=== PATIENT | male | born 1970 | race African-American/Black ===

== ENCOUNTER 2017-02-26 17:20 | Emergency (ER) | payer BC, OTHER ==
[2017-02-26] MEDS ORDERED: Sodium Chloride 0.9% 2.5 ML Syringe FLUSH PRN (17:34)
[2017-02-26] MEDS ORDERED: Sodium Chloride 0.9% 10 ML Syringe FLUSH PRN (17:34)
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
[2017-02-26] MEDS ORDERED: Iopamidol 755 Mg/ML 100 ML Bottle IVPUSH STA (18:00)
[2017-02-26 19:48] VITALS: BP 151/92
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
== END 2017-02-26 19:46 | disposition home or self-care (01) ==
LOC: MW.ED 17:20
DX: S32.049A Unspecified fracture of fourth lumbar vertebra, initial encounter for closed fracture (principal); M48.061 Spinal stenosis, lumbar region without neurogenic claudication; S61.412A Laceration without foreign body of left hand, initial encounter; S00.01XA Abrasion of scalp, initial encounter; V59.9XXA Occupant (driver) (passenger) of pick-up truck or van injured in unspecified traffic accident, initial encounter
CPT/HCPCS: 36415; 72131-26; 74177; 74177-26; 80053; 85025; 99283; 99284-25

== ENCOUNTER 2017-05-01 14:50 | Emergency (ER) | payer BC ==
--- NOTE | 2017-05-01 15:08 | EDM.PDOC ---
ED HPI GENERAL MEDICAL PROBLEM - General Chief Complaint: Neurological Problem Stated Complaint: AMB Time Seen by Provider: 05/01/17 15:01 Source of Information: Reports: Patient History Limitations: Reports: No Limitations - History of Present Illness INITIAL COMMENTS - FREE TEXT/NARRATIVE: History of present illness: []Patient is noncompliant with his Keppra and had a seizure today. He came in by ambulance and has been awake and alert and has no complaints on arrival Review of systems: As per history of present illness and below otherwise all systems reviewed and negative. Past medical history: As per history of present illness and as reviewed below otherwise noncontributory. Surgical history: As per history of present illness and as reviewed below otherwise noncontributory. Social history: No reported history of drug or alcohol abuse. Family history: As per history of present illness and as reviewed below otherwise noncontributory. Physical exam: General: Well developed, well nourished in NAD HEENT: Atraumatic, normocephalic, pupils reactive, negative for conjunctival pallor or scleral icterus, mucous membranes moist, throat clear, neck supple, nontender, trachea midline. Lungs: Clear to auscultation, breath sounds equal bilaterally, chest nontender. Heart: S1S2, regular, negative for clicks, rubs, or JVD. Abdomen: Soft, nondistended, nontender. Negative for masses or hepatosplenomegaly. Negative for costovertebral tenderness. Pelvis: Stable nontender. Genitourinary: Deferred. Rectal: Deferred. Extremities: Atraumatic, negative for cords or calf pain. Neurovascular unremarkable. Neuro: Awake, alert, oriented. Cranial nerves II through XII unremarkable. Cerebellum unremarkable. Motor and sensory unremarkable throughout. Exam nonfocal. Diagnostics: []Bedside glucose=94 Therapeutics: [] Impression: []Uncontrolled seizures secondary to noncompliance meds Plan: []Take Keppra as directed follow-up with primary care Definitive disposition and diagnosis as appropriate pending reevaluation and review of above. - Related Data Allergies Allergy/AdvReac Type Severity Reaction Status Date / Time No Known Allergies Allergy Verified 05/01/17 14:59 Home Meds: Home Meds amLODIPine Besylate [Amlodipine Besylate] 5 mg PO DAILY 05/01/17 [History] levETIRAcetam [Keppra] 750 mg PO BID 05/01/17 [History] Past Medical History - Past Health History Medical/Surgical History: Denies Medical/Surgical History Cardiovascular History: Reports: Hypertension Neurological History: Reports: Seizure, Other (See Below) Other Neuro History: Meningioma Social & Family History - Family History Family Medical History: Noncontributory - Tobacco Use Smoking Status *Q: Never Smoker Second Hand Smoke Exposure: No - Alcohol Use Days Per Week of Alcohol Use: 4 Number of Drinks Per Day: 6 Total Drinks Per Week: 24 - Recreational Drug Use Recreational Drug Use: No ED ROS GENERAL - Review of Systems Review Of Systems: See Below (See history of present illness) ED EXAM, NEURO - Physical Exam Exam: See Below (See history of present illness) Course - Vital Signs Last Recorded V/S: Last Vital Signs Temp 98.4 F 05/01/17 14:55 Pulse 93 05/01/17 14:55 Resp 18 05/01/17 14:55 BP 175/103 H 05/01/17 14:55 Pulse Ox 97 05/01/17 14:55 Departure - Departure Time of Disposition: 15:07 Disposition: Home, Self-Care 01 Condition: Good Clinical Impression: Uncontrolled seizures Qualifiers: Convulsion type: unspecified Qualified Code(s): R56.9 - Unspecified convulsions - Discharge Information Referrals: PCP,None [Primary Care Provider] - Additional Instructions: The following information is given to patients seen in the emergency department who are being discharged to home. This information is to outline your options for follow-up care. We provide all patients seen in our emergency department with a follow-up referral. The need for follow-up, as well as the timing and circumstances, are variable depending upon the specifics of your emergency department visit. If you don't have a primary care physician on staff, we will provide you with a referral. We always advise you to contact your personal physician following an emergency department visit to inform them of the circumstance of the visit and for follow-up with them and/or the need for any referrals to a consulting specialist. The emergency department will also refer you to a specialist when appropriate. This referral assures that you have the opportunity for follow-up care with a specialist. All of these measure are taken in an effort to provide you with optimal care, which includes your follow-up. Under all circumstances we always encourage you to contact your private physician who remains a resource for coordinating your care. When calling for follow-up care, please make the office aware that this follow-up is from your recent emergency room visit. If for any reason you are refused follow-up, please contact the [facility] at and asked to speak to the emergency department charge nurse. Take Keradhara as directed do not miss any doses [facility] [address] [place] [id number]
[2017-05-01 16:09] VITALS: BP 190/115
== END 2017-05-01 15:12 | disposition home or self-care (01) ==
LOC: MW.ED 14:50
DX: R56.9 Unspecified convulsions (principal); I10 Essential (primary) hypertension; Z91.14 Patient's other noncompliance with medication regimen; Z79.899 Other long term (current) drug therapy
CPT/HCPCS: 82962; 99282; 99284

== ENCOUNTER 2017-08-10 14:30 | Emergency (ER) | payer BC ==
--- NOTE | 2017-08-10 14:51 | EDM.PDOC ---
ED HPI GENERAL MEDICAL PROBLEM - General Chief Complaint: Neuro Symptoms/Deficits Stated Complaint: PT HAD A SEIZURE Time Seen by Provider: 08/10/17 14:40 - History of Present Illness INITIAL COMMENTS - FREE TEXT/NARRATIVE: HISTORY AND PHYSICAL: History of present illness: The patient is a 47-year-old male with a known history of seizure disorder and takes Keppra as well as follows with Dr. Triana at [facility] and presents after having a seizure while at work on the oil [employer] today. According to the patient he had a meningioma removed in 2009 and actually did not have any seizures as a result of that surgery. He developed seizures at some point afterwards and when he is working with his stressful job he seems to be more susceptible to the seizures. The patient tells me that he was working today and he did feel that he was going to have a seizure, which usually includes that things get hazy, so he moved into a safer area and then proceeded to go to his knees and then oh to the ground and had a typical seizure for him biting his tongue. He did not lose bowel or bladder incontinence and he currently has no systemic complaints and no complaints of any trauma or pain as a result of the seizure. The patient says he has been on Keppra for 2-1/2 years and has been following at [facility] for his blood pressure as well as the seizures. The patient was seen here mid April after having a seizure due to medication noncompliance and he says that he has been good about taking his medications but he works between [place] and [place] and his medications are back and [place] and he has not been able to take them for the last 3 days. Patient says he is eating and drinking normally and has no complaints of fever chills chest pain headache shortness of breath no pain back pain abdominal complaints. The patient tells me the only reason why he came here today was because it is required by his job but everything about today's events is all typical for him i.e. the presentation of the seizure the character of the seizure and the fact that it occurred because he did not have his medications for 3 days. Review of systems: As per history of present illness and below otherwise all systems reviewed and negative. Past medical history: As per history of present illness and as reviewed below otherwise noncontributory. Surgical history: As per history of present illness and as reviewed below otherwise noncontributory. Social history: No reported history of drug or alcohol abuse. Family history: As per history of present illness and as reviewed below otherwise noncontributory. Physical exam: General: Well-developed well-nourished man who is nontoxic and vital signs were noted by me. HEENT: Atraumatic, normocephalic, without any tenderness defects or deformities , pupils reactive, negative for conjunctival pallor or scleral icterus, mucous membranes moist, throat clear, neck supple, nontender, trachea midline. There is a tongue abrasion seen on the left side of his tongue without any active bleeding, there are some superficial skin abrasions seen at his left and right zygoma is without any palpable bony deformities or tenderness, teeth and bite are intact, there are no midline step-offs tenderness defects of the cervical spine. Lungs: Clear to auscultation, breath sounds equal bilaterally, chest nontender. Heart: S1S2, regular rate and rhythm no overt murmurs Abdomen: Soft, nondistended, nontender. Negative for masses or hepatosplenomegaly. NABS Pelvis: Stable nontender. Genitourinary: Deferred. Rectal: Deferred. Extremities: Atraumatic, negative for cords or calf pain. Neurovascular unremarkable. Full range of motion without defects or deficits Neuro: Awake, alert, oriented. Cranial nerves II through XII unremarkable. Cerebellum unremarkable. Motor and sensory unremarkable throughout. Exam nonfocal. Diagnostics: [] Therapeutics: Keppra 750 mg by mouth I offered the patient a workup and further evaluation but as everything about today is typical including why the seizure occurred the patient only wants a dose of his Keppra so he can get back to [facility] where his medications are and go to sleep. He says that he will be compliant with his meds and also call and schedule a follow-up in the clinic. Impression: Seizure with history of same, missed medication dosing Definitive disposition and diagnosis as appropriate pending reevaluation and review of above. - Related Data Allergies Allergy/AdvReac Type Severity Reaction Status Date / Time No Known Allergies Allergy Verified 08/10/17 14:51 Home Meds: Home Meds amLODIPine Besylate [Amlodipine Besylate] 5 mg PO DAILY 05/01/17 [History] levETIRAcetam [Keppra] 750 mg PO BID 05/01/17 [History] Past Medical History - Past Health History Medical/Surgical History: Denies Medical/Surgical History Cardiovascular History: Reports: Hypertension Neurological History: Reports: Seizure, Other (See Below) Other Neuro History: Meningioma Social & Family History - Family History Family Medical History: Noncontributory ED ROS GENERAL - Review of Systems Review Of Systems: ROS reveals no pertinent complaints other than HPI. ED EXAM, GENERAL - Physical Exam Exam: See Below (See dictation) Course - Orders/Labs/Meds Orders: Active Orders 24 hr Category Date Time Status levETIRAcetam [Keppra] Med 08/10/17 14:53 Once 750 mg PO ONETIME ONE Medication Orders Levetiracetam (Keppra) 750 mg PO ONETIME ONE Stop: 08/10/17 14:54 Meds: Medications Generic Name Dose Route Start Last Admin Trade Name Freq PRN Reason Stop Dose Admin Levetiracetam 750 mg 08/10/17 14:53 Keppra PO 08/10/17 14:54 ONETIME ONE Departure - Departure Time of Disposition: 14:57 Disposition: Home, Self-Care 01 Condition: Good Clinical Impression: Recurrent seizures - Discharge Information Referrals: PCP,None [Primary Care Provider] - Forms: ED Department Discharge Additional Instructions: The following information is given to patients seen in the emergency department who are being discharged to home. This information is to outline your options for follow-up care. We provide all patients seen in our emergency department with a follow-up referral. The need for follow-up, as well as the timing and circumstances, are variable depending upon the specifics of your emergency department visit. If you don't have a primary care physician on staff, we will provide you with a referral. We always advise you to contact your personal physician following an emergency department visit to inform them of the circumstance of the visit and for follow-up with them and/or the need for any referrals to a consulting specialist. The emergency department will also refer you to a specialist when appropriate. This referral assures that you have the opportunity for followup care with a specialist. All of these measure are taken in an effort to provide you with optimal care, which includes your followup. Under all circumstances we always encourage you to contact your private physician who remains a resource for coordinating your care. When calling for followup care, please make the office aware that this follow-up is from your recent emergency room visit. If for any reason you are refused follow-up, please contact the [facility] emergency department at and ask to speak to the emergency department charge nurse. [address] [place] [address] Triana for recheck and reevaluation and take your Keppra medications as prescribed by him. Push hydration and rest and return to ER as needed and as discussed - My Orders Last 24 Hours: My Active Orders 08/10/17 14:53 levETIRAcetam [Keppra] 750 mg PO ONETIME ONE - Assessment/Plan Last 24 Hours: My Active Orders 08/10/17 14:53 levETIRAcetam [Keppra] 750 mg PO ONETIME ONE
[2017-08-10] MEDS ORDERED: levETIRAcetam 500 MG Tab PO ONE (14:53)
[2017-08-10 14:54] VITALS: BP 165/85
== END 2017-08-10 15:47 | disposition home or self-care (01) ==
LOC: MW.ED 14:30
DX: G40.909 Epilepsy, unspecified, not intractable, without status epilepticus (principal); I10 Essential (primary) hypertension; Z79.899 Other long term (current) drug therapy
CPT/HCPCS: 99282; A9270; 99283

== ENCOUNTER 2018-07-04 23:50 | Emergency (ER) | payer SELFPAY ==
--- NOTE | 2018-07-04 23:58 | EDM.PDOC ---
ED HPI GENERAL MEDICAL PROBLEM - General Chief Complaint: General Stated Complaint: MEDICAL CLEARANCE Time Seen by Provider: 07/04/18 23:55 - History of Present Illness INITIAL COMMENTS - FREE TEXT/NARRATIVE: HISTORY AND PHYSICAL: History of present illness: Patient 48-year-old white male who presents in custody of law enforcement for medical clearance he denies complaints Review of systems: As per history of present illness and below otherwise all systems reviewed and negative. Past medical history: As per history of present illness and as reviewed below otherwise noncontributory. Surgical history: As per history of present illness and as reviewed below otherwise noncontributory. Social history: No reported history of drug or alcohol abuse. Family history: As per history of present illness and as reviewed below otherwise noncontributory. Physical exam: HEENT: Atraumatic, normocephalic, pupils reactive, negative for conjunctival pallor or scleral icterus, mucous membranes moist, throat clear, neck supple, nontender, trachea midline. Lungs: Clear to auscultation, breath sounds equal bilaterally, chest nontender. Heart: S1S2, regular, negative for clicks, rubs, or JVD. Abdomen: Soft, nondistended, nontender. Negative for masses or hepatosplenomegaly. Negative for costovertebral tenderness. Pelvis: Stable nontender. Genitourinary: Deferred. Rectal: Deferred. Extremities: Atraumatic, negative for cords or calf pain. Neurovascular unremarkable. Neuro: Awake, alert, oriented. Cranial nerves II through XII unremarkable. Cerebellum unremarkable. Motor and sensory unremarkable throughout. Exam nonfocal. Diagnostics: None Therapeutics: None Impression: #1 medical clearance for incarceration Definitive disposition and diagnosis as appropriate pending reevaluation and review of above. - Related Data Allergies Allergy/AdvReac Type Severity Reaction Status Date / Time No Known Allergies Allergy Verified 08/10/17 14:51 Home Meds: Home Meds amLODIPine Besylate [Amlodipine Besylate] 10 mg PO DAILY 05/01/17 [History] levETIRAcetam [Keppra] 750 mg PO BID 05/01/17 [History] Past Medical History - Past Health History Medical/Surgical History: Denies Medical/Surgical History HEENT History: Reports: None Cardiovascular History: Reports: Hypertension Respiratory History: Reports: None Gastrointestinal History: Reports: None Genitourinary History: Reports: None Musculoskeletal History: Reports: None Neurological History: Reports: Seizure, Other (See Below) Other Neuro History: Meningioma Psychiatric History: Reports: None Endocrine/Metabolic History: Reports: None Hematologic History: Reports: None Immunologic History: Reports: None Oncologic (Cancer) History: Reports: None Dermatologic History: Reports: None - Past Surgical History Head Surgeries/Procedures: Reports: None HEENT Surgical History: Reports: None Cardiovascular Surgical History: Reports: None Respiratory Surgical History: Reports: None GI Surgical History: Reports: None Male Surgical History: Reports: None Endocrine Surgical History: Reports: None Neurological Surgical History: Reports: None Musculoskeletal Surgical History: Reports: None Oncologic Surgical History: Reports: None Dermatological Surgical History: Reports: None Social & Family History - Family History Family Medical History: Noncontributory - Caffeine Use Caffeine Use: Reports: None ED ROS GENERAL - Review of Systems Review Of Systems: ROS reveals no pertinent complaints other than HPI. ED EXAM, GENERAL - Physical Exam Exam: See Below (See dictation) Departure - Departure Time of Disposition: 23:57 Disposition: Home, Self-Care 01 Condition: Good Clinical Impression: Medical clearance for incarceration - Discharge Information Referrals: PCP,None [Primary Care Provider] - Additional Instructions: The following information is given to patients seen in the emergency department who are being discharged to home. This information is to outline your options for follow-up care. We provide all patients seen in our emergency department with a follow-up referral. The need for follow-up, as well as the timing and circumstances, are variable depending upon the specifics of your emergency department visit. If you don't have a primary care physician on staff, we will provide you with a referral. We always advise you to contact your personal physician following an emergency department visit to inform them of the circumstance of the visit and for follow-up with them and/or the need for any referrals to a consulting specialist. The emergency department will also refer you to a specialist when appropriate. This referral assures that you have the opportunity for followup care with a specialist. All of these measure are taken in an effort to provide you with optimal care, which includes your followup. Under all circumstances we always encourage you to contact your private physician who remains a resource for coordinating your care. When calling for followup care, please make the office aware that this follow-up is from your recent emergency room visit. If for any reason you are refused follow-up, please contact the [facility] emergency department at and asked to speak to the emergency department charge nurse. Follow-up primary medical doctor as needed as discussed return as needed as discussed
[2018-07-05 00:11] VITALS: BP 170/100
== END 2018-07-05 00:10 | disposition home or self-care (01) ==
LOC: MW.ED 23:50
DX: Z02.89 Encounter for other administrative examinations (principal); I10 Essential (primary) hypertension; Z79.899 Other long term (current) drug therapy
CPT/HCPCS: 99282; 99283

== ENCOUNTER 2019-08-18 16:05 | Inpatient (IN) | payer MEDICAID ==
[2019-08-18] MEDS ORDERED: LORazepam 2 MG/ML SDV IVPUSH ONE ×4 (16:29→18:40)
--- NOTE | 2019-08-18 16:40 | EDM.PDOC ---
ED HPI GENERAL MEDICAL PROBLEM - General Chief Complaint: Neuro Symptoms/Deficits Stated Complaint: SEIZURE Time Seen by Provider: 08/18/19 16:08 - History of Present Illness INITIAL COMMENTS - FREE TEXT/NARRATIVE: HISTORY AND PHYSICAL: History of present illness: 49-year-old male with a past medical history of brain tumor with resection, seizure disorder currently on Keppra, and intermittent alcoholism presents to the emergency department complaining of a full-body tonic-clonic seizure that happened this morning. He was postictal initially and brought by paramedics. He reports that he was about 6 or 7 hours late on his Keppra dose. He has been drinking at least 1 pint of whiskey every night for the last 5 nights or more. Sometimes he feels tremulous when he does not drink. This morning he had a full body tonic-clonic seizure. He was found to be tachycardic with a heart rate greater than 120, hypertensive, and mildly confused initially. His hypertension and tachycardia has not improved. The patient reports that he had some tongue biting and denies any incontinence. He does complain of bilateral elbow pain. Patient states that he has gout. He would like something for his gout because of the pain. Denies any recent infections or other trauma. No other modifying, aggravating or alleviating factors. Review of systems: A 10-point review of systems, other than pertinent positives and negatives as stated per HPI, is otherwise negative. Past medical history: As per history of present illness and as reviewed below otherwise noncontributory. Surgical history: As per history of present illness and as reviewed below otherwise noncontributory. Social history: No reported history of drug or alcohol abuse. Family history: As per history of present illness and as reviewed below otherwise noncontributory. Physical exam: VITAL SIGNS: Reviewed. GENERAL: Moderate distress. Tachycardic and hypertensive. HEAD: No signs of head trauma. Postsurgical changes. No new changes. EYES: No upgoing nystagmus. Pupils are equal round and reactive to light. Extraocular movements are intact. There is some mild lateral nystagmus EARS: Hearing grossly intact. MOUTH: Bilateral tongue biting left greater than right. The patient has tongue fasciculations. NECK: No adenopathy, no JVD. CHEST: Chest with clear breath sounds bilaterally. No wheezes, rales, or rhonchi. CARDIAC: Tachycardic rate. Regular rhythm. I do not appreciate a murmur. VASCULAR: Peripheral pulses normal and equal in all extremities. ABDOMEN: Soft, without detectable tenderness. No sign of distention. No rebound or guarding, and no masses palpated. MUSCULOSKELETAL: Good range of motion of all major joints. Extremities without clubbing, cyanosis or edema. NEUROLOGIC EXAM: Alert and oriented x 3. No focal sensory or motor deficits. Speech normal. Follows commands. There is no hyperreflexia present in the upper extremities. PSYCHIATRIC: Mood normal. SKIN: No rash or lesions. Initial Differential Diagnosis & Plan: The patient has altered mental status and I considered the following entities in the differential diagnosis: hypoglycemia, electrolyte imbalance, head trauma , intracranial bleed or mass, meningitis sepsis, transient ischemic attack or stroke, toxidrome/intoxication/medication effect, seizure or postictal state, hepatic encephalopathy, acid/base disturbance, hypercapnia. The patient presents with hypertension, tachycardia, seizure, and tongue fasciculations with 5 days or more of binge drinking. The patient was laid on his Keppra and has underlying seizure disorder. I feel that this represents an alcohol withdrawal seizure and complicated by not taking his anti-seizure medications. I will provide intravenous Ativan, 2 mg, loading dose of Keppra 1000 mg, check electrolytes and labs and reevaluate the patient. Definitive disposition and diagnosis as appropriate pending reevaluation and review of above. - Related Data Allergies Allergy/AdvReac Type Severity Reaction Status Date / Time No Known Allergies Allergy Verified 08/18/19 16:10 Home Meds: Home Meds amLODIPine Besylate [Amlodipine Besylate] 10 mg PO DAILY 05/01/17 [History] levETIRAcetam [Keppra] 750 mg PO BID 05/01/17 [History] Past Medical History - Past Health History Medical/Surgical History: Denies Medical/Surgical History HEENT History: Reports: None Cardiovascular History: Reports: Hypertension Respiratory History: Reports: None Gastrointestinal History: Reports: None Genitourinary History: Reports: None Musculoskeletal History: Reports: None Neurological History: Reports: Seizure, Other (See Below) Other Neuro History: Meningioma Psychiatric History: Reports: None Endocrine/Metabolic History: Reports: None Hematologic History: Reports: None Immunologic History: Reports: None Oncologic (Cancer) History: Reports: None Dermatologic History: Reports: None - Past Surgical History Head Surgeries/Procedures: Reports: None HEENT Surgical History: Reports: None Cardiovascular Surgical History: Reports: None Respiratory Surgical History: Reports: None GI Surgical History: Reports: None Male Surgical History: Reports: None Endocrine Surgical History: Reports: None Neurological Surgical History: Reports: None Musculoskeletal Surgical History: Reports: None Oncologic Surgical History: Reports: None Dermatological Surgical History: Reports: None Social & Family History - Family History Family Medical History: Noncontributory - Caffeine Use Caffeine Use: Reports: None ED ROS GENERAL - Review of Systems Review Of Systems: Unable To Obtain (note) Reason Not Obtained: note - Physical Exam Exam: Not Obtained (note) Reason Not Obtained: note EKG INTERPRETATION EKG Interpretation Comments: 12 lead EKG interpretation Obtained: August 18, 2019 at 1609 Rhythm: Sinus tachycardia Rate: [address] [place]: Normal Intervals: Normal ST/T Segments: No acute ischemic changes Interpretation: Sinus tachycardia Course - Vital Signs Last Recorded V/S: Last Vital Signs Temp 98.1 F 08/18/19 16:05 Pulse 99 08/18/19 17:13 Resp 17 08/18/19 17:13 BP 172/111 H 08/18/19 17:13 Pulse Ox 97 08/18/19 17:13 - Orders/Labs/Meds Orders: Active Orders 24 hr Category Date Time Status Admission Status [Patient Status] [ADT] Stat ADT 08/18/19 17:17 Ordered Cardiac Monitoring [RC] . DIRECTED Care 08/18/19 17:17 Ordered EKG 12 Lead [EKG Documentation Completion] [RC] STAT Care 08/18/19 16:26 Active EKG 12 Lead [EKG Documentation Completion] [RC] STAT Care 08/18/19 16:31 Active UA RFX JOSH AND CULT IF INDIC [URIN] Stat Lab 08/18/19 16:31 Ordered PHENobarbitaL sodium 130 mg Med 08/18/19 17:14 Ordered Sodium Chloride 0.9% [Normal Saline] 100 ml IV ONETIME Medication Orders Phenobarbital 130 mg/ Sodium (Chloride) 101 mls @ 200 mls/hr IV ONETIME ONE Stop: 08/18/19 17:43 Labs: Laboratory Tests 08/18/19 08/18/19 Range/Units 16:13 16:13 WBC 7.78 (4.0-11.0) K/uL RBC 3.30 L (4.50-5.90) M/uL Hgb 10.2 L (13.0-17.0) g/dL Hct 32.5 L (38.0-50.0) % MCV 98.5 H (80.0-98.0) fL MCH 30.9 (27.0-32.0) pg MCHC 31.4 (31.0-37.0) g/dL RDW Std Deviation 69.8 H (28.0-62.0) fl RDW Coeff of Josue 19 H (11.0-15.0) % Plt Count 415 H (150-400) K/uL MPV 9.20 (7.40-12.00) fL Neut % (Auto) 50.4 (48.0-80.0) % Lymph % (Auto) 36.2 (16.0-40.0) % [place]aufman % (Auto) 10.5 (0.0-15.0) % Eos % (Auto) 2.1 (0.0-7.0) % Baso % (Auto) 0.8 (0.0-1.5) % Neut # (Auto) 3.9 (1.4-5.7) K/uL Lymph # (Auto) 2.8 H (0.6-2.4) K/uL [place]aufman # (Auto) 0.8 (0.0-0.8) K/uL Eos # (Auto) 0.2 (0.0-0.7) K/uL Baso # (Auto) 0.1 (0.0-0.1) K/uL Nucleated RBC % 0.0 /100WBC Nucleated RBCs # 0 K/uL Sodium 141 (136-148) mmol/L Potassium 4.9 (3.5-5.1) mmol/L Chloride 102 (98-107) mmol/L Carbon Dioxide 20.0 L (21.0-32.0) mmol/L BUN 10 (7.0-18.0) mg/dL Creatinine 1.8 H (0.8-1.3) mg/dL Est Cr Clr Drug Dosing TNP Estimated GFR (MDRD) 48.5 ml/min Glucose 149 H (74-106) mg/dL Calcium 9.0 (8.5-10.1) mg/dL Total Bilirubin 0.3 (0.2-1.0) mg/dL AST 101 H (15-37) IU/L ALT 64 H (14-63) IU/L Alkaline Phosphatase 72 (46-116) U/L Troponin I < 0.050 (0.000-0.056) ng/mL Total Protein 7.7 (6.4-8.2) g/dL Albumin 3.4 (3.4-5.0) g/dL Globulin 4.3 H (2.6-4.0) g/dL Albumin/Globulin Ratio 0.8 L (0.9-1.6) Ethyl Alcohol <3 mg/dL Meds: Medications Generic Name Dose Route Start Last Admin Trade Name Freq PRN Reason Stop Dose Admin Phenobarbital 130 mg/ Sodium 101 mls @ 200 mls/hr 08/18/19 17:14 Chloride IV 08/18/19 17:43 ONETIME ONE Discontinued Medications Generic Name Dose Route Start Last Admin Trade Name Freq PRN Reason Stop Dose Admin Levetiracetam 1,000 mg/ 110 mls @ 440 mls/hr 08/18/19 16:30 08/18/19 17:13 Dextrose/Water IV 08/18/19 16:44 440 mls/hr ONETIME ONE Administration Lorazepam 2 mg 08/18/19 16:29 08/18/19 16:35 Ativan IVPUSH 08/18/19 16:30 2 mg ONETIME ONE Administration Lorazepam 2 mg 08/18/19 17:14 Ativan IVPUSH 08/18/19 17:15 ONETIME ONE - Re-Assessments/Exams Free Text/Narrative Re-Assessment/Exam: 08/18/19 17:19 The patient continues to be hypertensive and tachycardic. Now he remembers that he had [id number] seizures. This is quite unusual for him and very concerning. I am concerned that if we try to manage him as an outpatient he will have additional seizures and may harm himself or have other high risk/high morbidity conditions. I have arranged for him to be admitted to the ICU. The patient will receive phenobarbital 130 mg IV, additional 2 mg of Ativan intravenously, and I will continue to monitor him for escalation of therapy. My diagnostic impression: 1. Acute alcohol withdrawal syndrome 2. History of seizure disorder secondary to brain surgery 3. 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 Anemia Critical Care Note: The patient presented in critical status due to acute alcohol withdrawal with seizures requiring intravenous benzodiazepines and intravenous phenobarbital The patient required rapid exam, decision making, and frequent re-evaluations during their time in the Emergency Department. Total Critical Care time exclusive of all other billable procedure time provided by myself 45 min Departure - Departure Time of Disposition: 17:23 Disposition: Admitted As Inpatient 64 Clinical Impression: Alcohol abuse with alcohol-induced disorder, Lyme disease - Discharge Information *PRESCRIPTION DRUG MONITORING PROGRAM REVIEWED*: Not Applicable *COPY OF PRESCRIPTION DRUG MONITORING REPORT IN PATIENT AMAYA: Not Applicable Forms: ED Department Discharge Sepsis Event Note - Focused Exam Vital Signs: Vital Signs Temp Pulse Resp BP Pulse Ox 08/18/19 17:13 99 17 172/111 H 97 08/18/19 16:05 98.1 F 126 H 18 185/103 H 97 Date Exam was Performed: 08/18/19 Time Exam was Performed: 17:19 - My Orders Last 24 Hours: My Active Orders 08/18/19 16:26 EKG 12 Lead [EKG Documentation Completion] [RC] STAT 08/18/19 16:31 EKG 12 Lead [EKG Documentation Completion] [RC] STAT UA RFX JOSH AND CULT IF INDIC [URIN] Stat 08/18/19 17:14 PHENobarbitaL sodium 130 mg Sodium Chloride 0.9% [Normal Saline] 100 ml IV ONETIME 08/18/19 17:17 Admission Status [Patient Status] [ADT] Stat Cardiac Monitoring [RC] . DIRECTED - Assessment/Plan Last 24 Hours: My Active Orders 08/18/19 16:26 EKG 12 Lead [EKG Documentation Completion] [RC] STAT 08/18/19 16:31 EKG 12 Lead [EKG Documentation Completion] [RC] STAT UA RFX JOSH AND CULT IF INDIC [URIN] Stat 08/18/19 17:14 PHENobarbitaL sodium 130 mg Sodium Chloride 0.9% [Normal Saline] 100 ml IV ONETIME 08/18/19 17:17 Admission Status [Patient Status] [ADT] Stat Cardiac Monitoring [RC] . DIRECTED
[2019-08-18 17:06] LABS: BLOOD UREA NITROGEN,BUN 10 mg/dL (7.0-18.0); CHLORIDE,CL 102 mmol/L (98-107); GLUCOSE RANDOM 149 mg/dL (74-106); POTASSIUM,K 4.9 mmol/L (3.5-5.1); SODIUM,NA 141 mmol/L (136-148)
[2019-08-18] MEDS ORDERED: PHENobarbitaL sodium 130 MG in Sodium Chloride 0.9% 100 ML IV ONE (17:14)
--- NOTE | 2019-08-18 17:17 | CR ---
Chest: Portable view of the chest was obtained. Comparison: Prior chest x-ray of 03/15/14. Heart size and mediastinum are normal. Lungs are clear with no acute parenchymal change. Bony structures are grossly intact. Impression: 1. Nothing acute is appreciated on portable chest x-ray. Diagnostic code #1 This report was dictated in MDT
--- NOTE | 2019-08-18 18:19 | PCM.HP.2 ---
H&P History of Present Illness - General Date of Service: 08/18/19 Admit Problem/Dx: Admission Diagnosis/Problem Admission Diagnosis/Problem Alcohol withdrawal seizure Source of Information: Patient History Limitations: Reports: No Limitations - History of Present Illness Initial Comments - Free Text/Narative: Patient is a 49-year-old male with a significant past medical history meningioma status post laser resection in 2008 and subsequent seizure disorder, on Keppra 750 mg twice daily; presenting today secondary to a full body tonic- clonic seizure which occurred this a.m. Currently postictal and arrived via EMS ; patient mentions missing his dose by 7 hours. Patient also endorses drinking 1 pint of whiskey every night for the past 5-6 nights. Has noticed feeling tremulous and agitated when not drinking alcohol. ED course: Tachycardic hypertensive; patient however denied any incontinence. Does endorse some elbow pain Chest x-ray; negative CT head; pending Bedside: Mentions drinking 1 pint of whiskey nightly secondary to his son visiting him. Mentioned this morning while at the gym having a olfactory hallucination; which he states is usually the precursor to a full-blown seizure ; after which he states that he had fallen to the ground but cannot recall hitting his head or causing other major trauma. Mentions fall was witnessed, denies any incontinence; and through his own admission mentions remembering bits and pieces during his full body seizure. Patient also endorses having seizures in the past secondary to alcohol use/ withdrawal. Patient has no other complaints at this time. Soft tissue swelling on skull; is a chronic issue and was attributed to a lipoma status post meningioma removal. - Related Data Allergies/Adverse Reactions: Allergies Allergy/AdvReac Type Severity Reaction Status Date / Time No Known Allergies Allergy Verified 08/18/19 16:10 Home Medications: Home Meds amLODIPine Besylate [Amlodipine Besylate] 10 mg PO DAILY 05/01/17 [History] levETIRAcetam [Keppra] 750 mg PO BID 05/01/17 [History] Past Medical History - Past Health History Medical/Surgical History: Denies Medical/Surgical History HEENT History: Reports: None Cardiovascular History: Reports: Hypertension Respiratory History: Reports: None Gastrointestinal History: Reports: None Genitourinary History: Reports: None Musculoskeletal History: Reports: None Neurological History: Reports: Seizure, Other (See Below) Other Neuro History: Meningioma Psychiatric History: Reports: None Endocrine/Metabolic History: Reports: None Hematologic History: Reports: None Immunologic History: Reports: None Oncologic (Cancer) History: Reports: None Dermatologic History: Reports: None - Infectious Disease History Infectious Disease History: Reports: None - Past Surgical History Head Surgeries/Procedures: Reports: None HEENT Surgical History: Reports: None Cardiovascular Surgical History: Reports: None Respiratory Surgical History: Reports: None GI Surgical History: Reports: None Male Surgical History: Reports: None Endocrine Surgical History: Reports: None Neurological Surgical History: Reports: None Musculoskeletal Surgical History: Reports: None Oncologic Surgical History: Reports: None Dermatological Surgical History: Reports: None Social & Family History - Family History Family Medical History: Noncontributory - Tobacco Use Smoking Status *Q: Never Smoker Second Hand Smoke Exposure: No - Caffeine Use Caffeine Use: Reports: None - Recreational Drug Use Recreational Drug Use: No H&P Review of Systems - Review of Systems: Review Of Systems: See Below General: Denies: Fever, Chills, Malaise HEENT: Reports: No Symptoms Pulmonary: Reports: No Symptoms. Denies: Shortness of Breath Cardiovascular: Reports: No Symptoms. Denies: Chest Pain, Palpitations Gastrointestinal: Denies: Abdominal Pain, Constipation, Diarrhea Genitourinary: Reports: No Symptoms Musculoskeletal: Reports: Hand Pain (chronic gout ) Skin: Reports: No Symptoms Psychiatric: Denies: Confusion, Agitation, Hallucinations Neurological: Reports: Seizure. 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 previous meningioma removal . no rizo sighn and or ecchymosis noted. ) Neck: Supple, Trachea Midline Lungs: Clear to Auscultation, Normal Respiratory Effort Cardiovascular: Regular Rate, Regular Rhythm GI/Abdominal Exam: Soft, Non-Tender Back Exam: Normal Inspection, Full Range of Motion Extremities: No Pedal Edema Skin: Warm, Intact Neurological: Cranial Nerves Intact, Reflexes Equal Bilateral, Strength Equal Bilateral, Normal Speech, Sensation Intact. No: Focal Deficit Neuro Extensive - Mental Status: Alert, Oriented x3, Normal Mood/Affect, Normal Cognition, Memory Intact. No: Disorientation to Person Neuro Extensive - Motor, Sensory, Reflexes: CN II-XII Intact, Normal Gait. No: Tongue Deviation (L), Tongue Deviation (R) Psychiatric: Alert, Normal Affect, Normal Mood - Patient Data Lab Results Last 24 hrs: Laboratory Results - last 24 hr 08/18/19 08/18/19 08/18/19 Range/Units 16:13 16:13 16:13 WBC 7.78 (4.0-11.0) K/uL RBC 3.30 L (4.50-5.90) M/uL Hgb 10.2 L (13.0-17.0) g/dL Hct 32.5 L (38.0-50.0) % MCV 98.5 H (80.0-98.0) fL MCH 30.9 (27.0-32.0) pg MCHC 31.4 (31.0-37.0) g/dL RDW Std Deviation 69.8 H (28.0-62.0) fl RDW Coeff of Josue 19 H (11.0-15.0) % Plt Count 415 H (150-400) K/uL MPV 9.20 (7.40-12.00) fL Neut % (Auto) 50.4 (48.0-80.0) % Lymph % (Auto) 36.2 (16.0-40.0) % Craig % (Auto) 10.5 (0.0-15.0) % Eos % (Auto) 2.1 (0.0-7.0) % Baso % (Auto) 0.8 (0.0-1.5) % Neut # (Auto) 3.9 (1.4-5.7) K/uL Lymph # (Auto) 2.8 H (0.6-2.4) K/uL Craig # (Auto) 0.8 (0.0-0.8) K/uL Eos # (Auto) 0.2 (0.0-0.7) K/uL Baso # (Auto) 0.1 (0.0-0.1) K/uL Nucleated RBC % 0.0 /100WBC Nucleated RBCs # 0 K/uL Sodium 141 (136-148) mmol/L Potassium 4.9 (3.5-5.1) mmol/L Chloride 102 (98-107) mmol/L Carbon Dioxide 20.0 L (21.0-32.0) mmol/L BUN 10 (7.0-18.0) mg/dL Creatinine 1.8 H (0.8-1.3) mg/dL Est Cr Clr Drug Dosing TNP Estimated GFR (MDRD) 48.5 ml/min Glucose 149 H (74-106) mg/dL Calcium 9.0 (8.5-10.1) mg/dL Magnesium 1.5 L (1.8-2.4) mg/dL Total Bilirubin 0.3 (0.2-1.0) mg/dL AST 101 H (15-37) IU/L ALT 64 H (14-63) IU/L Alkaline Phosphatase 72 (46-116) U/L Creatine Kinase 625 H (26-308) U/L Troponin I < 0.050 (0.000-0.056) ng/mL Total Protein 7.7 (6.4-8.2) g/dL Albumin 3.4 (3.4-5.0) g/dL Globulin 4.3 H (2.6-4.0) g/dL Albumin/Globulin Ratio 0.8 L (0.9-1.6) Ethyl Alcohol <3 mg/dL Result Diagrams: 08/18/19 16:13 08/18/19 16:13 Sepsis Event Note - Evaluation Sepsis Screening Result: No Definite Risk - Focused Exam Vital Signs: Vital Signs Temp Pulse Resp BP Pulse Ox 08/18/19 17:13 99 17 172/111 H 97 08/18/19 16:05 98.1 F 126 H 18 185/103 H 97 Date Exam was Performed: 08/18/19 Time Exam was Performed: 19:58 Problem List Initiated/Reviewed/Updated: Yes Orders Last 24hrs: Active Orders 24 hr Category Date Time Status Admission Status [Patient Status] [ADT] Stat ADT 08/18/19 17:17 Active Cardiac Monitoring [RC] . DIRECTED Care 08/18/19 17:17 Active EKG 12 Lead [EKG Documentation Completion] [RC] STAT Care 08/18/19 16:26 Active EKG 12 Lead [EKG Documentation Completion] [RC] STAT Care 08/18/19 16:31 Active Head wo Cont [CT] Stat Exams 08/18/19 17:21 Ordered UA RFX JOSH AND CULT IF INDIC [URIN] Stat Lab 08/18/19 16:31 Ordered amLODIPine [Norvasc] Med 08/19/19 09:00 Ordered 10 mg PO DAILY levETIRAcetam [Keppra] Med 08/19/19 09:00 Ordered 750 mg PO BID Medication Orders Amlodipine Besylate (Norvasc) 10 mg PO DAILY SHANNAN Non-Formulary Medication (Levetiracetam [Keppra]) 750 mg PO BID SHANNAN Assessment/Plan Comment:: Assessment 1. Generalized tonic-clonic seizure, currently postictal, in the setting of acute alcohol intoxication, medical noncompliance, and history of meningioma status post resection 2. Alcohol intoxication with impending withdrawal 3. Transaminitis most likely secondary to alcohol abuse 4. Acute kidney injury Plan Admit to observation. Full code. ICU. Telemetry. Seizure precautions. 1. Seizure activity: Currently not postictal; restart medication of Keppra 750 mg twice daily; received Keppra dose in the ER along with Ativan and phenobarbital; start Keppra in a.m. at home dose; continue to monitor for seizure activity. 2. Alcohol intoxication with impending withdrawal; CIWA with Ativan protocol; will start patient on folic acid, thiamine and replete electrolytes as needed. 3. Transaminitis most likely secondary to above: Continue to monitor; recheck in a.m. 4. Elevated CPK in setting of seizure; not post-ictal. Will continue to monitor , hydrate ; pt. is on telemetry. 5. Hypomagnesemia : repleted with 1 gram this afternoon; recheck in AM
[2019-08-18] MEDS ORDERED: Magnesium Sulfate (4.06 MEQ/ML) 1 GM/2 ML SDV IV ONE (18:38)
[2019-08-18] MEDS ORDERED: Thiamine 100 MG in Sodium Chloride 0.9% 100 ML IV ONE (18:42)
[2019-08-18] MEDS ORDERED: Sodium Chloride 0.9% 1,000 ML IV ONE ×2 (19:14→20:45)
--- NOTE | 2019-08-18 19:33 | PN ---
THC Physician - Brief Progress [id number]/01/2020 19:32[facility] Ivory Maurilio allred, JOHN - TYRESEN (NAHUNN) - MWN MARIANNESUKUMAR ROEHuongDate of Service 08/18/2019 19:32HPI/Events o f Note eICU Admission [id number] admitted for EtOH withdrawal. History obtained from review of EMR.PMH: meningioma status post resection in 2008 with subsequent seizure disorder, EtOH useHPI: Patient prese nted to ED after an episode of seizure-like activity today AM. Initial work up revealed patient to be tachycardic. Laboratory studies revealed an anion gap metabolic acidosis, and transaminitis, and oth erwise a negative EtOH level.Camera exam: Laying in bed. Vitals monitor reviewed. Labs: reviewedRadio logy: reviewedeICU Impression and Recommendations:Seizure-like activity, differential including alcoh ol withdrawal or underlying seizure disorderAlcohol withdrawal protocol per institutional policy, inc luding administration of PRN benzodiazepinesSeizure precautions per institutional policyContinued tel emetry monitoringThiamine supplementation, 100mg dailyFolic acid, 400mcg dailyCT head to rule out int racranial processurinalysis and UDS (if producing urine), ECG, CPK, LDH. Can consider neuron specific enolase and prolactin.EEGNeurology consult for comment on AED regimen, as well as for comment on uti lity of MRI,Recommend load with levetiracetam or fosphenytoin, will defer to primary service, we are available to assist if desiredPRN benzodiazepines for seizure-like activityLow threshold for intubati on if unable to protect airwayTransaminitis, given history likely secondary to EtOH hepatitisTrend LF Ts, lactateShould transaminitis fail to improve, consider broadening work up with liver ultrasound wi th doppler, acetaminophen level, hepatitis panel (to include hepatitis A, B, C, D, and E)Anion gap me tabolic acidosis, uncertain etiologyLactate, serum ketones (ie beta-hydroxybutyrate), serum osmolalit y (for calculation of osmolar gap), acetaminophen levelDVT and GI prophylaxis as appropriate.Thank ana maria pandya for allowing us to participate in the care of this patient.The above note transcribed with the assi stance of dictation software. Please excuse any errors.Interventions Major-Seizures - evaluation and management
[2019-08-18] MEDS ORDERED: LORazepam 2 MG/ML SDV IVPUSH PRN (19:34)
[2019-08-18] MEDS ORDERED: WATER IV ONE (20:15)
[2019-08-18] MEDS ORDERED: MAGNESIUM SULFATE IV ONE (20:15)
[2019-08-18] MEDS ORDERED: Folic Acid 1 MG Tab PO SCH (21:00)
--- NOTE | 2019-08-18 21:03 | CT ---
Head CT Technique: Multiple axial sections through the brain were obtained. Intravenous contrast was not utilized. Comparison: Previous head CT study of 03/15/14. Findings: Low density masslike area is seen within the left upper scalp in area of prior craniotomy. This finding measures 4.0 cm x 2.4 cm. This finding has significantly increased in size from previous exam. There is an area of encephalomalacia within the left frontal convexity which appears stable. Ventricles along with basal cisterns and sulci over the convexities are mildly prominent. No other abnormal parenchymal densities are seen. No evidence of intracranial hemorrhage. No midline shift or mass-effect is seen. Minimal mucosal thickening is seen within the ethmoid sinus. Old medial orbital blowout fracture is seen on the right side. This has occurred in the interim from prior exam. No acute calvarial finding is seen. Impression: 1. Low density mass within the left upper scalp in area of previous craniotomy. This is increased in size from previous head CT exam. Findings raise the possibility of chronic dural CSF leak which is extending through the craniotomy defect and causing this finding. Measurements as noted above. 2. Area of chronic encephalomalacia within the upper left frontal convexity. 3. No acute intracranial abnormality is appreciated. 4. Medial orbital blowout fracture on the right side which has occurred in the interim from prior exam. Diagnostic code #3 This report was dictated in MDT
[2019-08-18] MEDS ORDERED: hydrALAZINE 10 MG Tab PO PRN ×2 (21:32→21:53)
--- NOTE | 2019-08-18 21:36 | PN ---
THC Physician - Brief Progress [id number]/01/2020 21:34[facility] [place] [place] - ZOILA (ZHEN) - SUKUMAR WYATTDate of Service 08/18/2019 21:34HPI/Events o f Note HTN- has been off BP meds for 3 days per RNNo headacheNo new seizureUse amlodipine po earlier than plannedUse hydralazine prn Pt resting on video D/w RNInterventions Major-Hypertension - evaluati on and management
[2019-08-18] MEDS: amLODIPine 5 MG Tab PO SCH (21:41)
[2019-08-19 06:58] LABS: BLOOD UREA NITROGEN,BUN 7 mg/dL (7.0-18.0); CARBON DIOXIDE,CO2 27.2 mmol/L (21.0-32.0); CHLORIDE,CL 107 mmol/L (98-107); GLUCOSE RANDOM 88 mg/dL (74-106); POTASSIUM,K 3.7 mmol/L (3.5-5.1); SODIUM,NA 142 mmol/L (136-148)
[2019-08-19 07:58] VITALS: PULSE 100
--- NOTE | 2019-08-19 08:59 | PN ---
THC Physician - Brief Progress [id number]/02/2020 08:50[facility] Maurilio Culp, JOHN - ZOILA (ZHEN) - SUKUMAR WYATTDate of Service 08/19/2019 08:50HPI/Events o f Note eICU progress note:49-year-old male currently admitted to the hospital for alcohol withdrawal and seizures. Overnight patient was noted to be hypertensive up to 190 systolic for which he was giv en amlodipine and hydralazine as needed. This morning his blood pressure was noted to be in the 140s systolic. No further acute events documented overnight via review of EMR.Patient seen on camera, la radu flat in bed, does not appear to be in any acute distress.Vital signs reviewedLabs/EMR/imaging re viewedAlcohol withdrawal-Agree with CIWA protocol with PRN ativan -If patient has high requirement of Benzo's can consider adding on Precedex to help decrease requirement.-Agree with Thiamine and folate -Recommend aggressive replacement of Mg and K to prevent any arrhythmias. Seizure activity-Likely rel ated to etoh withdrawal- CT head negative for acute process-Continued on Keppra BID-Continue with sei zure precautions. -Ativan PRNInterventions Major-Change in mental status - evaluation and managementE lectronically Signed by: GILL ALY) on 08/19/2019 08:58
[2019-08-19] MEDS ORDERED: amLODIPine 5 MG Tab PO SCH (09:00)
[2019-08-19] MEDS ORDERED: levETIRAcetam 500 MG Tab PO SCH (09:00)
[2019-08-19] MEDS: amLODIPine 5 MG Tab PO SCH (09:11)
[2019-08-19] MEDS ORDERED: Magnesium Sulfate/Water 2 GM in Premix Bag 1 BAG IV ONE (09:24)
[2019-08-19] MEDS ORDERED: Naproxen 500 MG Tab PO PRN (11:52)
--- NOTE | 2019-08-19 11:58 | PCM.DCSUM1 ---
<Horacio Leung - Last Filed: 08/19/19 17:25> Discharge Summary - Hospital Course Free Text/Narrative:: Discharge summary Admission date August 18, 2019 Discharge date August 19, 2019 Admission diagnoses: Witnessed seizure with fall secondary to baseline seizure disorder status post meningioma removal, alcohol use Past medical history: Alcohol use disorder, gout Discharge diagnoses: Witnessed seizure with fall secondary to baseline seizure disorder status post manual removal alcohol use and medication noncompliance Consultations: eICU Procedures: None Hospital course: 49-year-old male with significant past medical history of seizure disorder on Keppra 750 mg twice daily, status post meningioma removal in 2008 and recent alcohol use. Patient endorses drinking 1 L of whiskey nightly for the past 5 days and and day of admission experienced a olfactory hallucination before having 1 of his seizure episodes. States he was witnessed and fell but did not cause any trauma including no head trauma and no loss of consciousness. Mentions remembering some details of the seizure however not recall all of the events. ED course: Patient was given dose of Ativan and phenobarbital, EKG was within normal limits CT of the head showed old changes from meningioma removal and extracranial changes: No acute intracranial findings. Patient was admitted to eICU and monitored throughout the night. No repeat seizure activity; patient was restarted on phenobarbital and was also given Naprosyn for his gouty flares of his right hand. Patient otherwise had a CIWA score of 0-1 throughout his stay and was not actively withdrawing patient was advised to follow with PCP to discuss medication compliance, avoidance of all alcohol use including beer and whiskey, and chronic medications for his gouty flares. Patient agreed and understood. Discharge condition: Stable Disposition: Home Discharge medications: Keppra 750 mg twice daily Amlodipine 10 mg daily Naprosyn 500 mg twice daily x7 days as needed pain Follow-up: PCP - Discharge Data Discharge Date: 08/19/19 Discharge Disposition: Home, Self-Care 01 Condition: Fair - Referral to Home Health Primary Care Physician: PCP None - Patient Summary/Data Consults: Consultations 08/18/19 22:17 Consult to Case Management/Tv News Director [CONS] Routine - Discharge Plan *PRESCRIPTION DRUG MONITORING PROGRAM REVIEWED*: Not Applicable *COPY OF PRESCRIPTION DRUG MONITORING REPORT IN PATIENT AMAYA: Not Applicable Prescriptions/Med Rec: Naproxen [Naprosyn] 500 mg PO Q12HR PRN 10 Days #20 tablet PRN Reason: pain amLODIPine [Norvasc] 10 mg PO DAILY 30 Days #30 tablet Home Medications: Home Meds levETIRAcetam [Keppra] 750 mg PO BID 05/01/17 [History] Naproxen [Naprosyn] 500 mg PO Q12HR PRN 10 Days #20 tablet 08/19/19 [Rx] amLODIPine [Norvasc] 10 mg PO DAILY 30 Days #30 tablet 08/19/19 [Rx] Patient Handouts: Naproxen; Sumatriptan tablets, Gout, [id number], Levetiracetam tablets, Hypertension, Adult, [id number], Preventing Hypertension, Alcohol Abuse and Nutrition, Seizure, Adult, [id number] Referrals: [facility] [Outside] - 09/03/19 10:45 am (Follow up with Dr. Triana.) Arvin Triana MD [Physician] - 09/03/19 10:45 am - Discharge Summary/Plan Comment DC Time >30 min.: No - Patient Data Vitals - Most Recent: Last Vital Signs Temp 98 F 08/19/19 08:00 Pulse 100 08/18/19 18:42 Resp 18 08/19/19 10:00 BP 146/83 H 08/19/19 10:00 Pulse Ox 100 08/19/19 10:00 Weight - Most Recent: 92.533 kg I&O - Last 24 hours: Intake & Output 08/18/19 08/19/19 08/19/19 22:59 06:59 14:59 Intake Total 1745 1374 Output Total 2270 805 Balance -525 569 Lab Results - Last 24 hrs: Laboratory Results - last 24 hr 08/18/19 08/18/19 08/18/19 Range/Units 16:13 16:13 16:13 WBC 7.78 (4.0-11.0) K/uL RBC 3.30 L (4.50-5.90) M/uL Hgb 10.2 L (13.0-17.0) g/dL Hct 32.5 L (38.0-50.0) % MCV 98.5 H (80.0-98.0) fL MCH 30.9 (27.0-32.0) pg MCHC 31.4 (31.0-37.0) g/dL RDW Std Deviation 69.8 H (28.0-62.0) fl RDW Coeff of Josue 19 H (11.0-15.0) % Plt Count 415 H (150-400) K/uL MPV 9.20 (7.40-12.00) fL Neut % (Auto) 50.4 (48.0-80.0) % Lymph % (Auto) 36.2 (16.0-40.0) % [place] % (Auto) 10.5 (0.0-15.0) % Eos % (Auto) 2.1 (0.0-7.0) % Baso % (Auto) 0.8 (0.0-1.5) % Neut # (Auto) 3.9 (1.4-5.7) K/uL Lymph # (Auto) 2.8 H (0.6-2.4) K/uL [place] # (Auto) 0.8 (0.0-0.8) K/uL Eos # (Auto) 0.2 (0.0-0.7) K/uL Baso # (Auto) 0.1 (0.0-0.1) K/uL Nucleated RBC % 0.0 /100WBC Nucleated RBCs # 0 K/uL Lactate (0.20-2.00) mmol/L Sodium 141 (136-148) mmol/L Potassium 4.9 (3.5-5.1) mmol/L Chloride 102 (98-107) mmol/L Carbon Dioxide 20.0 L (21.0-32.0) mmol/L BUN 10 (7.0-18.0) mg/dL Creatinine 1.8 H (0.8-1.3) mg/dL Est Cr Clr Drug Dosing TNP Estimated GFR (MDRD) 48.5 ml/min Glucose 149 H (74-106) mg/dL Calcium 9.0 (8.5-10.1) mg/dL Magnesium 1.5 L (1.8-2.4) mg/dL Total Bilirubin 0.3 (0.2-1.0) mg/dL AST 101 H (15-37) IU/L ALT 64 H (14-63) IU/L Alkaline Phosphatase 72 (46-116) U/L Creatine Kinase 625 H (26-308) U/L Troponin I < 0.050 (0.000-0.056) ng/mL Total Protein 7.7 (6.4-8.2) g/dL Albumin 3.4 (3.4-5.0) g/dL Globulin 4.3 H (2.6-4.0) g/dL Albumin/Globulin Ratio 0.8 L (0.9-1.6) Urine Color Urine Appearance Urine pH (5.0-8.0) Ur Specific [place] (1.001-1.035) Urine Protein (NEGATIVE) mg/dL Urine Glucose (UA) (NEGATIVE) mg/dL Urine Ketones (NEGATIVE) mg/dL Urine Occult Blood (NEGATIVE) Urine Nitrite (NEGATIVE) Urine Bilirubin (NEGATIVE) Urine Urobilinogen (<2.0) EU/dL Ur Leukocyte Esterase (NEGATIVE) Urine RBC (0-2/HPF) Urine WBC (0-5/HPF) Ur Epithelial Cells (NONE-FEW) Urine Bacteria (NEGATIVE) Ethyl Alcohol <3 mg/dL 08/18/19 08/18/19 08/19/19 Range/Units 19:26 19:50 06:00 WBC 5.49 (4.0-11.0) K/uL RBC 2.99 L (4.50-5.90) M/uL Hgb 9.1 L (13.0-17.0) g/dL Hct 29.4 L (38.0-50.0) % MCV 98.3 H (80.0-98.0) fL MCH 30.4 (27.0-32.0) pg MCHC 31.0 (31.0-37.0) g/dL RDW Std Deviation 69.2 H (28.0-62.0) fl RDW Coeff of Josue 19 H (11.0-15.0) % Plt Count 333 (150-400) K/uL MPV 8.40 (7.40-12.00) fL Neut % (Auto) 66.8 (48.0-80.0) % Lymph % (Auto) 20.9 (16.0-40.0) % [place] % (Auto) 8.6 (0.0-15.0) % Eos % (Auto) 2.6 (0.0-7.0) % Baso % (Auto) 1.1 (0.0-1.5) % Neut # (Auto) 3.7 (1.4-5.7) K/uL Lymph # (Auto) 1.2 (0.6-2.4) K/uL [place] # (Auto) 0.5 (0.0-0.8) K/uL Eos # (Auto) 0.1 (0.0-0.7) K/uL Baso # (Auto) 0.1 (0.0-0.1) K/uL Nucleated RBC % 0.0 /100WBC Nucleated RBCs # 0 K/uL Lactate 1.6 (0.20-2.00) mmol/L Sodium (136-148) mmol/L Potassium (3.5-5.1) mmol/L Chloride (98-107) mmol/L Carbon Dioxide (21.0-32.0) mmol/L BUN (7.0-18.0) mg/dL Creatinine (0.8-1.3) mg/dL Est Cr Clr Drug Dosing Estimated GFR (MDRD) ml/min Glucose (74-106) mg/dL Calcium (8.5-10.1) mg/dL Magnesium (1.8-2.4) mg/dL Total Bilirubin (0.2-1.0) mg/dL AST (15-37) IU/L ALT (14-63) IU/L Alkaline Phosphatase (46-116) U/L Creatine Kinase (26-308) U/L Troponin I (0.000-0.056) ng/mL Total Protein (6.4-8.2) g/dL Albumin (3.4-5.0) g/dL Globulin (2.6-4.0) g/dL Albumin/Globulin Ratio (0.9-1.6) Urine Color YELLOW Urine Appearance CLEAR Urine pH 7.5 (5.0-8.0) Ur Specific [place] 1.015 (1.001-1.035) Urine Protein 30 H (NEGATIVE) mg/dL Urine Glucose (UA) NEGATIVE (NEGATIVE) mg/dL Urine Ketones NEGATIVE (NEGATIVE) mg/dL Urine Occult Blood NEGATIVE (NEGATIVE) Urine Nitrite NEGATIVE (NEGATIVE) Urine Bilirubin NEGATIVE (NEGATIVE) Urine Urobilinogen 0.2 (<2.0) EU/dL Ur Leukocyte Esterase NEGATIVE (NEGATIVE) Urine RBC 0-1 (0-2/HPF) Urine WBC 0-1 (0-5/HPF) Ur Epithelial Cells RARE (NONE-FEW) Urine Bacteria RARE (NEGATIVE) Ethyl Alcohol mg/dL 08/19/19 08/19/19 Range/Units 06:00 06:00 WBC (4.0-11.0) K/uL RBC (4.50-5.90) M/uL Hgb (13.0-17.0) g/dL Hct (38.0-50.0) % MCV (80.0-98.0) fL MCH (27.0-32.0) pg MCHC (31.0-37.0) g/dL RDW Std Deviation (28.0-62.0) fl RDW Coeff of Josue (11.0-15.0) % Plt Count (150-400) K/uL MPV (7.40-12.00) fL Neut % (Auto) (48.0-80.0) % Lymph % (Auto) (16.0-40.0) % [place] % (Auto) (0.0-15.0) % Eos % (Auto) (0.0-7.0) % Baso % (Auto) (0.0-1.5) % Neut # (Auto) (1.4-5.7) K/uL Lymph # (Auto) (0.6-2.4) K/uL [place] # (Auto) (0.0-0.8) K/uL Eos # (Auto) (0.0-0.7) K/uL Baso # (Auto) (0.0-0.1) K/uL Nucleated RBC % /100WBC Nucleated RBCs # K/uL Lactate (0.20-2.00) mmol/L Sodium 142 (136-148) mmol/L Potassium 3.7 (3.5-5.1) mmol/L Chloride 107 (98-107) mmol/L Carbon Dioxide 27.2 (21.0-32.0) mmol/L BUN 7 (7.0-18.0) mg/dL Creatinine 1.2 (0.8-1.3) mg/dL Est Cr Clr Drug Dosing 77.57 Estimated GFR (MDRD) > 60.0 ml/min Glucose 88 (74-106) mg/dL Calcium 8.1 L (8.5-10.1) mg/dL Magnesium 1.7 L (1.8-2.4) mg/dL Total Bilirubin 0.4 (0.2-1.0) mg/dL AST 65 H (15-37) IU/L ALT 53 (14-63) IU/L Alkaline Phosphatase 60 (46-116) U/L Creatine Kinase (26-308) U/L Troponin I (0.000-0.056) ng/mL Total Protein 6.4 (6.4-8.2) g/dL Albumin 2.8 L (3.4-5.0) g/dL Globulin 3.6 (2.6-4.0) g/dL Albumin/Globulin Ratio 0.8 L (0.9-1.6) Urine Color Urine Appearance Urine pH (5.0-8.0) Ur Specific [place] (1.001-1.035) Urine Protein (NEGATIVE) mg/dL Urine Glucose (UA) (NEGATIVE) mg/dL Urine Ketones (NEGATIVE) mg/dL Urine Occult Blood (NEGATIVE) Urine Nitrite (NEGATIVE) Urine Bilirubin (NEGATIVE) Urine Urobilinogen (<2.0) EU/dL Ur Leukocyte Esterase (NEGATIVE) Urine RBC (0-2/HPF) Urine WBC (0-5/HPF) Ur Epithelial Cells (NONE-FEW) Urine Bacteria (NEGATIVE) Ethyl Alcohol mg/dL Med Orders - Current: Current Medications Amlodipine Besylate (Norvasc) 10 mg PO DAILY [facility] Last Admin: 08/19/19 09:11 Dose: 10 mg Folic Acid (Folic Acid) 1 mg PO BEDTIME [facility] Last Admin: 08/18/19 20:57 Dose: 1 mg Hydralazine HCl (Apresoline) 20 mg PO Q6H PRN PRN Reason: Hypertension Last Admin: 08/19/19 07:04 Dose: 20 mg Levetiracetam (Keppra) 750 mg PO BID [facility] Last Admin: 08/19/19 09:10 Dose: 750 mg Lorazepam (Ativan) 0 mg IVPUSH Q4H PRN; Protocol PRN Reason: Withdrawal Symptoms Naproxen (Naprosyn) 500 mg PO Q12HR PRN PRN Reason: pain Discontinued Medications Amlodipine Besylate (Norvasc) 10 mg PO DAILY [facility] Hydralazine HCl (Apresoline) 10 mg PO Q6H PRN PRN Reason: Hypertension Last Admin: 08/18/19 21:42 Dose: 10 mg Levetiracetam 1,000 mg/ (Dextrose/Water) 110 mls @ 440 mls/hr IV ONETIME ONE Stop: 08/18/19 16:44 Last Admin: 08/18/19 17:13 Dose: 440 mls/hr Phenobarbital 130 mg/ Sodium (Chloride) 101 mls @ 200 mls/hr IV ONETIME ONE Stop: 08/18/19 17:43 Last Admin: 08/18/19 19:05 Dose: 200 mls/hr Thiamine HCl 100 mg/ Sodium (Chloride) 101 mls @ 202 mls/hr IV ONETIME ONE Stop: 08/18/19 18:43 Last Admin: 08/18/19 20:53 Dose: 202 mls/hr Sodium Chloride (Normal Saline) 1,000 mls @ 999 mls/hr IV STAT ONE Stop: 08/18/19 20:14 Last Admin: 08/18/19 19:41 Dose: 999 mls/hr Sodium Chloride (Normal Saline) 1,000 mls @ 100 mls/hr IV STAT ONE Stop: 08/19/19 06:44 Last Admin: 08/18/19 20:50 Dose: 100 mls/hr Magnesium Sulfate 1 gm/ Premix 25 mls @ 25 mls/hr IV ONETIME ONE Stop: 08/18/19 21:14 Last Admin: 08/18/19 21:28 Dose: 25 mls/hr Magnesium Sulfate 2 gm/ Premix 50 mls @ 50 mls/hr IV ONETIME ONE Stop: 08/19/19 10:23 Last Admin: 08/19/19 10:18 Dose: 50 mls/hr Lorazepam (Ativan) 2 mg IVPUSH ONETIME ONE Stop: 08/18/19 16:30 Last Admin: 08/18/19 16:35 Dose: 2 mg Lorazepam (Ativan) 2 mg IVPUSH ONETIME ONE Stop: 08/18/19 17:15 Last Admin: 08/18/19 17:25 Dose: 2 mg Lorazepam (Ativan) 0 mg IVPUSH ONETIME ONE; Protocol Stop: 08/18/19 17:27 Last Admin: 08/18/19 20:56 Dose: Not Given Lorazepam (Ativan) 0 mg IVPUSH ONETIME ONE; Protocol Stop: 08/18/19 18:41 Last Admin: 08/18/19 20:56 Dose: Not Given <Les Jones - Last Filed: 08/19/19 20:49> Discharge Summary - Referral to Home Health Primary Care Physician: PCP None - Patient Summary/Data Consults: Consultations 08/18/19 22:17 Consult to Case Management/Tv News Director [CONS] Routine - Patient Data Vitals - Most Recent: Last Vital Signs Temp 36.8 C 08/19/19 16:00 Pulse 100 08/18/19 18:42 Resp 18 08/19/19 16:00 BP 153/95 H 08/19/19 16:00 Pulse Ox 100 08/19/19 16:00 I&O - Last 24 hours: Intake & Output 08/19/19 08/19/19 08/19/19 06:59 14:59 22:59 Intake Total 1745 1374 550 Output Total 2270 805 950 Balance -525 569 -400 Lab Results - Last 24 hrs: Laboratory Results - last 24 hr 08/19/19 08/19/19 08/19/19 Range/Units 06:00 06:00 06:00 WBC 5.49 (4.0-11.0) K/uL RBC 2.99 L (4.50-5.90) M/uL Hgb 9.1 L (13.0-17.0) g/dL Hct 29.4 L (38.0-50.0) % MCV 98.3 H (80.0-98.0) fL MCH 30.4 (27.0-32.0) pg MCHC 31.0 (31.0-37.0) g/dL RDW Std Deviation 69.2 H (28.0-62.0) fl RDW Coeff of Josue 19 H (11.0-15.0) % Plt Count 333 (150-400) K/uL MPV 8.40 (7.40-12.00) fL Neut % (Auto) 66.8 (48.0-80.0) % Lymph % (Auto) 20.9 (16.0-40.0) % [place] % (Auto) 8.6 (0.0-15.0) % Eos % (Auto) 2.6 (0.0-7.0) % Baso % (Auto) 1.1 (0.0-1.5) % Neut # (Auto) 3.7 (1.4-5.7) K/uL Lymph # (Auto) 1.2 (0.6-2.4) K/uL [place] # (Auto) 0.5 (0.0-0.8) K/uL Eos # (Auto) 0.1 (0.0-0.7) K/uL Baso # (Auto) 0.1 (0.0-0.1) K/uL Nucleated RBC % 0.0 /100WBC Nucleated RBCs # 0 K/uL Sodium 142 (136-148) mmol/L Potassium 3.7 (3.5-5.1) mmol/L Chloride 107 (98-107) mmol/L Carbon Dioxide 27.2 (21.0-32.0) mmol/L BUN 7 (7.0-18.0) mg/dL Creatinine 1.2 (0.8-1.3) mg/dL Est Cr Clr Drug Dosing 77.57 mL/min Estimated GFR (MDRD) > 60.0 ml/min Glucose 88 (74-106) mg/dL Uric Acid (2.6-7.2) mg/dL Calcium 8.1 L (8.5-10.1) mg/dL Magnesium 1.7 L (1.8-2.4) mg/dL Total Bilirubin 0.4 (0.2-1.0) mg/dL AST 65 H (15-37) IU/L ALT 53 (14-63) IU/L Alkaline Phosphatase 60 (46-116) U/L Total Protein 6.4 (6.4-8.2) g/dL Albumin 2.8 L (3.4-5.0) g/dL Globulin 3.6 (2.6-4.0) g/dL Albumin/Globulin Ratio 0.8 L (0.9-1.6) 08/19/19 Range/Units 06:00 WBC (4.0-11.0) K/uL RBC (4.50-5.90) M/uL Hgb (13.0-17.0) g/dL Hct (38.0-50.0) % MCV (80.0-98.0) fL MCH (27.0-32.0) pg MCHC (31.0-37.0) g/dL RDW Std Deviation (28.0-62.0) fl RDW Coeff of Josue (11.0-15.0) % Plt Count (150-400) K/uL MPV (7.40-12.00) fL Neut % (Auto) (48.0-80.0) % Lymph % (Auto) (16.0-40.0) % [place] % (Auto) (0.0-15.0) % Eos % (Auto) (0.0-7.0) % Baso % (Auto) (0.0-1.5) % Neut # (Auto) (1.4-5.7) K/uL Lymph # (Auto) (0.6-2.4) K/uL [place] # (Auto) (0.0-0.8) K/uL Eos # (Auto) (0.0-0.7) K/uL Baso # (Auto) (0.0-0.1) K/uL Nucleated RBC % /100WBC Nucleated RBCs # K/uL Sodium (136-148) mmol/L Potassium (3.5-5.1) mmol/L Chloride (98-107) mmol/L Carbon Dioxide (21.0-32.0) mmol/L BUN (7.0-18.0) mg/dL Creatinine (0.8-1.3) mg/dL Est Cr Clr Drug Dosing mL/min Estimated GFR (MDRD) ml/min Glucose (74-106) mg/dL Uric Acid 10.6 H (2.6-7.2) mg/dL Calcium (8.5-10.1) mg/dL Magnesium (1.8-2.4) mg/dL Total Bilirubin (0.2-1.0) mg/dL AST (15-37) IU/L ALT (14-63) IU/L Alkaline Phosphatase (46-116) U/L Total Protein (6.4-8.2) g/dL Albumin (3.4-5.0) g/dL Globulin (2.6-4.0) g/dL Albumin/Globulin Ratio (0.9-1.6) Med Orders - Current: Current Medications Discontinued Medications Amlodipine Besylate (Norvasc) 10 mg PO DAILY [facility] Amlodipine Besylate (Norvasc) 10 mg PO DAILY [facility] Last Admin: 08/19/19 09:11 Dose: 10 mg Folic Acid (Folic Acid) 1 mg PO BEDTIME [facility] Last Admin: 08/18/19 20:57 Dose: 1 mg Hydralazine HCl (Apresoline) 10 mg PO Q6H PRN PRN Reason: Hypertension Last Admin: 08/18/19 21:42 Dose: 10 mg Hydralazine HCl (Apresoline) 20 mg PO Q6H PRN PRN Reason: Hypertension Last Admin: 08/19/19 07:04 Dose: 20 mg Levetiracetam 1,000 mg/ (Dextrose/Water) 110 mls @ 440 mls/hr IV ONETIME ONE Stop: 08/18/19 16:44 Last Admin: 08/18/19 17:13 Dose: 440 mls/hr Phenobarbital 130 mg/ Sodium (Chloride) 101 mls @ 200 mls/hr IV ONETIME ONE Stop: 08/18/19 17:43 Last Admin: 08/18/19 19:05 Dose: 200 mls/hr Thiamine HCl 100 mg/ Sodium (Chloride) 101 mls @ 202 mls/hr IV ONETIME ONE Stop: 08/18/19 18:43 Last Admin: 08/18/19 20:53 Dose: 202 mls/hr Sodium Chloride (Normal Saline) 1,000 mls @ 999 mls/hr IV STAT ONE Stop: 08/18/19 20:14 Last Admin: 08/18/19 19:41 Dose: 999 mls/hr Sodium Chloride (Normal Saline) 1,000 mls @ 100 mls/hr IV STAT ONE Stop: 08/19/19 06:44 Last Admin: 08/18/19 20:50 Dose: 100 mls/hr Magnesium Sulfate 1 gm/ Premix 25 mls @ 25 mls/hr IV ONETIME ONE Stop: 08/18/19 21:14 Last Admin: 08/18/19 21:28 Dose: 25 mls/hr Magnesium Sulfate 2 gm/ Premix 50 mls @ 50 mls/hr IV ONETIME ONE Stop: 08/19/19 10:23 Last Admin: 08/19/19 10:18 Dose: 50 mls/hr Levetiracetam (Keppra) 750 mg PO BID [facility] Last Admin: 08/19/19 09:10 Dose: 750 mg Lorazepam (Ativan) 2 mg IVPUSH ONETIME ONE Stop: 08/18/19 16:30 Last Admin: 08/18/19 16:35 Dose: 2 mg Lorazepam (Ativan) 2 mg IVPUSH ONETIME ONE Stop: 08/18/19 17:15 Last Admin: 08/18/19 17:25 Dose: 2 mg Lorazepam (Ativan) 0 mg IVPUSH ONETIME ONE; Protocol Stop: 08/18/19 17:27 Last Admin: 08/18/19 20:56 Dose: Not Given Lorazepam (Ativan) 0 mg IVPUSH ONETIME ONE; Protocol Stop: 08/18/19 18:41 Last Admin: 08/18/19 20:56 Dose: Not Given Lorazepam (Ativan) 0 mg IVPUSH Q4H PRN; Protocol PRN Reason: Withdrawal Symptoms Naproxen (Naprosyn) 500 mg PO Q12HR PRN PRN Reason: pain Last Admin: 08/19/19 13:43 Dose: 500 mg - Free Text/Narrative Note: I have seen and evaluated the patient with the resident. I have discussed findings and treatment plan with resident. I agree with the assessment and plan as outlined in the following note.
[2019-08-19 16:30] VITALS: BP 153/95
== END 2019-08-19 16:28 | disposition home or self-care (01) | DRG 101 ==
LOC: MW.ED 16:05 → MW.ICU 17:17
PROVIDERS: ADMIT Student in an Organized Health Care Education/Training Program; ATTEND Student in an Organized Health Care Education/Training Program
DX: G40.909 Epilepsy, unspecified, not intractable, without status epilepticus (principal); F10.239 Alcohol dependence with withdrawal, unspecified; M10.9 Gout, unspecified; Z91.19 Patient's noncompliance with other medical treatment and regimen; Z79.899 Other long term (current) drug therapy; I10 Essential (primary) hypertension; W19.XXXA Unspecified fall, initial encounter
CPT/HCPCS: 36415; 70450; 70450-26; 71045; 71045-26; 80053; 80307; 81001; 82550; 83605; 83735; 84484; 84550; 85025; 93005; 96374; 96375; 99285; 99291; A9270-GY; J1953; J2060; J2560; J3411; J3475; J7030; J7050; J7060

== ENCOUNTER 2020-05-08 13:59 | Emergency (ER) | payer MEDICAID ==
--- NOTE | 2020-05-08 14:12 | EDM.PDOC ---
ED HPI GENERAL MEDICAL PROBLEM - General Chief Complaint: Medication Administration Stated Complaint: medical clearance Time Seen by Provider: 05/08/20 14:03 Source of Information: Reports: Patient History Limitations: Reports: No Limitations - History of Present Illness INITIAL COMMENTS - FREE TEXT/NARRATIVE: HISTORY AND PHYSICAL: History of present illness: Patient to the emergency room for medical clearance for incarceration. Law enforcement states they are concerned as the medications he is supposed to be taking daily are outdated and he has not been taking his blood pressure medication as had previously been directed. Patient states he has been taking his Keppra but moved his larger pill bottle into an outdated pill bottle, has no concerns of any breakthrough seizures. He does admit he has not been taking his amlodipine, unsure of the last time he took this medication. Patient denies any fever, chills, headache, change in vision, syncope or near syncope. Denies any chest pain, back pain, shortness of breath or cough. Denies any GI or symptoms. Past medical history of meningioma status post laser resection in 2008 and subsequent seizure disorder, currently takes Keppra BID. History of hypertension and gout. Denies any recent travel. Denies any alcohol or drug abuse. Review of systems: As per history of present illness and below otherwise all systems reviewed and negative. Past medical history: As per history of present illness and as reviewed below otherwise noncontributory. Surgical history: As per history of present illness and as reviewed below otherwise noncontributory. Social history: See social history for further information Family history: As per history of present illness and as reviewed below otherwise noncontributo ry. Physical exam: General: Well developed and well nourished 50-year-old black male. Alert and orientated x 3. Nontoxic in appearance and in no acute distress. Vital signs are stable and have been reviewed by me. Nursing notes were reviewed. HEENT: Atraumatic, normocephalic, pupils equal and reactive bilaterally, negative for conjunctival pallor or scleral icterus, mucous membranes moist, TMs normal bilaterally, throat clear, neck supple, nontender, trachea midline. No drooling or trismus noted. No meningeal signs. No hot potato voice noted. Lungs: Clear to auscultation bilaterally. No wheezes, rales, or rhonchi. Chest nontender. Normal work of breathing, no accessory muscles used. Heart: S1S2, regular rate and rhythm without overt murmur, gallops, or rubs. No JVD. No peripheral edema Abdomen: Soft, nondistended, nontender. Normoactive bowel sounds. Negative for masses or costovertebral tenderness. Skin: Intact, warm, dry. No lesions or rashes noted. Hematologic: No petechiae or purpra. Mucosa appropriate color and normal nail bed color and refill. Extremities: Atraumatic, moves all extremities per self without difficulty or deficits, negative for cords or calf pain. Neurovascular unremarkable. Neuro: Awake, alert, oriented. Cranial nerves II through XII unremarkable. Cerebellum unremarkable. Motor and sensory unremarkable throughout. Exam nonfocal. Psychiatric: Mood and affect are appropriate. Normal thought process. Answering questions appropriately. Notes: *This patient was seen and evaluated during the 2019 SARS-CoV-2 novel coronavirus pandemic period. Community viral transmission is ongoing at time of this encounter and the emergency department is operating under pandemic response procedures. Patient's blood pressure is elevated while here. I will give him a dose of his amlodipine and monitor for 30 minutes. He is asymptomatic and offers no current complaints or concerns. EKG shows no signs of ischemia. I have talked with the patient about today's findings, in addition to providing specific details for plan of care. Reassessment at the time of disposition demonstrates that the patient is in no acute distress. The patient is stable for discharge, counseling was provided and we discussed in great detail signs and symptoms that would prompt them to return to the Emergency Department. Medication, follow up and supportive care measures were reviewed and discussed. Voices understanding and is agreeable to plan of care. Denies any further questions or concerns at this time. Diagnostics: EKG Therapeutics: Naproxen, Amlodipine Prescription: Keppra, Naproxen, Amlodipine Impression: Encounter for medical clearance Medication refill Plan: 1. Please take your medications as directed. 2. You can alternate Tylenol and ibuprofen as needed for pain and fever management. 3. We encourage you to follow up with your primary care provider and/or recommended specialist in the next few days for re-evaluation and further care/management. 4. If your symptoms should worsen, new symptoms develop or any of the signs and symptoms we discussed should arise please return to the emergency room or call 911 (if needed). Definitive disposition and diagnosis as appropriate pending reevaluation and review of above. Left Shoulder Pain Score (Numeric/FACES): 4 - Related Data Allergies Allergy/AdvReac Type Severity Reaction Status Date / Time No Known Allergies Allergy Verified 05/08/20 14:07 Home Meds: Home Meds levETIRAcetam [Keppra] 750 mg PO BID 05/01/17 [History] Naproxen [Naprosyn] 500 mg PO Q12HR PRN 10 Days #20 tablet 08/19/19 [Rx] amLODIPine [Norvasc] 10 mg PO DAILY 30 Days #30 tablet 08/19/19 [Rx] Naproxen 500 mg PO BID PRN #60 tablet 05/08/20 [Rx] amLODIPine Besylate [Amlodipine Besylate] 10 mg PO DAILY #30 tablet 05/08/20 [Rx] levETIRAcetam [Keppra] 750 mg PO BID 30 Days #60 tablet 05/08/20 [Rx] Past Medical History - Past Health History Medical/Surgical History: Denies Medical/Surgical History HEENT History: Reports: None Cardiovascular History: Reports: Hypertension Respiratory History: Reports: None Gastrointestinal History: Reports: None Genitourinary History: Reports: None Musculoskeletal History: Reports: None Neurological History: Reports: Seizure, Other (See Below) Other Neuro History: Meningioma Psychiatric History: Reports: None Endocrine/Metabolic History: Reports: None Hematologic History: Reports: None Immunologic History: Reports: None Oncologic (Cancer) History: Reports: None Dermatologic History: Reports: None - Infectious Disease History Infectious Disease History: Reports: None - Past Surgical History Head Surgeries/Procedures: Reports: None HEENT Surgical History: Reports: None Cardiovascular Surgical History: Reports: None Respiratory Surgical History: Reports: None GI Surgical History: Reports: None Male Surgical History: Reports: None Endocrine Surgical History: Reports: None Neurological Surgical History: Reports: None Musculoskeletal Surgical History: Reports: None Oncologic Surgical History: Reports: None Dermatological Surgical History: Reports: None Social & Family History - Family History Family Medical History: No Pertinent Family History - Caffeine Use Caffeine Use: Reports: None ED ROS GENERAL - Review of Systems Review Of Systems: Comprehensive ROS is negative, except as noted in HPI. ED EXAM, GENERAL - Physical Exam Exam: See Below (See dictation) Course - Vital Signs Last Recorded V/S: Last Vital Signs Temp 97 F 05/08/20 14:07 Pulse 110 H 05/08/20 14:07 Resp 16 05/08/20 14:07 BP 183/102 H 05/08/20 14:29 Pulse Ox 96 05/08/20 14:07 - Orders/Labs/Meds Orders: Active Orders 24 hr Category Date Time Status EKG Documentation Completion [RC] STAT Care 05/08/20 14:12 Ordered Meds: Medications Discontinued Medications Generic Name Dose Route Start Last Admin Trade Name Freq PRN Reason Stop Dose Admin Amlodipine Besylate 10 mg 05/08/20 14:14 05/08/20 14:29 Norvasc PO 05/08/20 14:15 10 mg ONETIME ONE Administration Indomethacin 50 mg 05/08/20 14:14 05/08/20 14:28 Indocin PO 05/08/20 14:15 Not Given ONETIME ONE Naproxen 500 mg 05/08/20 14:16 05/08/20 14:28 Naprosyn PO 05/08/20 14:17 500 mg ONETIME ONE Administration Departure - Departure Time of Disposition: 14:25 Disposition: Home, Self-Care 01 Clinical Impression: Encounter for medical screening examination, Encounter for medication refill - Discharge Information Prescriptions: amLODIPine Besylate [Amlodipine Besylate] 10 mg PO DAILY #30 tablet levETIRAcetam [Keppra] 750 mg PO BID 30 Days #60 tablet Naproxen 500 mg PO BID PRN #60 tablet PRN Reason: Pain Referrals: PCP,Unknown [Primary Care Provider] - Forms: ED Department Discharge Additional Instructions: The following information is given to patients seen in the emergency department who are being discharged to home. This information is to outline your options for follow-up care. We provide all patients seen in our emergency department with a follow-up referral. The need for follow-up, as well as the timing and circumstances, are variable depending upon the specifics of your emergency department visit. If you don't have a primary care physician on staff, we will provide you with a referral. We always advise you to contact your personal physician following an emergency department visit to inform them of the circumstance of the visit and for follow-up with them and/or the need for any referrals to a consulting specialist. The emergency department will also refer you to a specialist when appropriate. This referral assures that you have the opportunity for follow-up care with a specialist. All of these measure are taken in an effort to provide you with optimal care, which includes your follow-up. Under all circumstances we always encourage you to contact your private physician who remains a resource for coordinating your care. When calling for follow-up care, please make the office aware that this follow-up is from your recent emergency room visit. If for any reason you are refused follow-up, please contact the [facility] Emergency Department at and asked to speak to the emergency department charge nurse. [facility] [address] [place] [id number] [facility] [address] [place] [id number] Thank you for choosing the [facility] emergency department in [place] for your medical needs today. It was a pleasure caring for you. Today you were seen in the emergency department for medical clearance. 1. Please take your medications as directed. 2. You can alternate Tylenol and ibuprofen as needed for pain and fever management. 3. We encourage you to follow up with your primary care provider and/or recommended specialist in the next few days for re-evaluation and further care/management. 4. If your symptoms should worsen, new symptoms develop or any of the signs and symptoms we discussed should arise please return to the emergency room or call 911 (if needed). Sepsis Event Note (ED) - Focused Exam Vital Signs: Vital Signs Temp Pulse Resp BP BP Pulse Ox 05/08/20 14:29 183/102 H 05/08/20 14:07 97 F 110 H 16 182/140 H 96 - My Orders Last 24 Hours: My Active Orders 05/08/20 14:12 EKG Documentation Completion [RC] STAT - Assessment/Plan Last 24 Hours: My Active Orders 05/08/20 14:12 EKG Documentation Completion [RC] STAT
[2020-05-08] MEDS ORDERED: Indomethacin 25 MG Cap PO ONE (14:14)
[2020-05-08] MEDS ORDERED: amLODIPine 5 MG Tab PO ONE (14:14)
[2020-05-08] MEDS ORDERED: Naproxen 500 MG Tab PO ONE (14:16)
--- NOTE | 2020-05-08 14:22 | PCM.EKG ---
#1 Interpretation EKG Date: 05/08/20 Time: 14:13 Rhythm: NSR Rate (Beats/Min): 103 [place]: Normal P-Wave: Present QRS: Normal ST-T: Normal QT: Normal IA/PQ Interval: 162 Comparison: NA - No Prior EKG EKG Interpretation Comments: no ischemic changes
[2020-05-08 14:55] VITALS: BP 162/97; PULSE 100
== END 2020-05-08 14:56 ==
LOC: MW.ED 13:59
DX: Z76.0 Encounter for issue of repeat prescription (principal); I10 Essential (primary) hypertension; R56.9 Unspecified convulsions; Z79.899 Other long term (current) drug therapy
CPT/HCPCS: 93005; 99283; A9270; 93010; 99282

== ENCOUNTER 2020-08-05 01:04 | Emergency (ER) | payer MEDICAID ==
[2020-08-05] MEDS ORDERED: Sodium Chloride 0.9% 10 ML Syringe FLUSH PRN (01:05)
[2020-08-05] MEDS ORDERED: Sodium Chloride 0.9% 1,000 ML IV ONE ×2 (01:05→02:25)
[2020-08-05] MEDS ORDERED: Sodium Chloride 0.9% 2.5 ML Syringe FLUSH PRN (01:05)
[2020-08-05 01:20] VITALS: PULSE 128
[2020-08-05 01:37] LABS: CARBON DIOXIDE,CO2 17.9 mmol/L (21.0-32.0); POTASSIUM,K 4.3 mmol/L (3.5-5.1)
--- NOTE | 2020-08-05 01:44 | EDM.PDOC ---
ED HPI GENERAL MEDICAL PROBLEM - General Chief Complaint: Neurological Problem Stated Complaint: SEIZURE Time Seen by Provider: 08/05/20 01:17 - History of Present Illness INITIAL COMMENTS - FREE TEXT/NARRATIVE: HISTORY AND PHYSICAL: History of present illness: This is a 50-year-old gentleman with a history significant for meningioma status post meningioma resection several years ago with resultant seizure disorder that has been fairly well controlled on Keppra presents to the ER today with witnessed seizure while at work. Patient reports that his last seizure was quite some time ago. Patient believes it was almost 2 years ago when he had his last CT scan. Patient reports that today he recalls the beginnings of a seizure which usually are typically preceded with his right arm raising in his left arm going down to the ground. Patient recalls going to the ground and did not hit his head. After that patient reports he did not recall any further symptoms of his seizure. Patient reports no loss of bowel or bladder function. No tongue bite. Patient denies any headache or pain or discomfort to his head neck back extremities abdomen or chest. Patient denies any recent fevers, shakes, chills, nausea, vomiting, diarrhea, dysuria, frequency, urgency, chest pain, shortness of breath, abdominal pain. Patient denies any double vision or blurred vision or change in speech. Patient has any slurring the speech. Patient reports he has been noncompliant with his Keppra. He reports he normally takes 750 mg during the day and 500 mg in the evening. Patient reports secondary to issues with being seen in my not he was unable to get his prescriptions refilled. He reports that the pharmacy was supposed to call him and never got a phone call back and therefore he stopped taking his Keppra quite some time ago. At this time, the patient reports he feels back to baseline. Patient reports that he does have a chronic lump on the top of his head ever since the surgical procedure which she was told was scar tissue from the resection of his meningioma. Review of systems: As per history of present illness and below otherwise all systems reviewed and negative. Past medical history: As per history of present illness and as reviewed below otherwise noncontributory. Surgical history: As per history of present illness and as reviewed below otherwise noncontributory. Social history: No reported history of drug abuse. Family history: As per history of present illness and as reviewed below otherwise noncontributory. Physical exam: This patient was seen and evaluated during the 2019 SARS-CoV-2 novel coronavirus pandemic period. Community viral transmission is ongoing at time of this encounter and the emergency department is operating under pandemic response procedures. Constitutional: Patient is oriented to person, place, and time. Appears well- developed and well-nourished. No distress. HEENT: Moist mucous membranes Head: Normocephalic and atraumatic Eyes: Right eye exhibits no discharge. Left eye exhibits no discharge. No scleral icterus Neck: Normal range of motion. No tracheal deviation present. Cardiovascular: Normal rate and regular rhythm. Pulmonary: Effort normal, no respiratory distress. Abdominal: No distention Musculoskeletal: Normal range of motion Neurologic: Alert and oriented to person, place and time. Skin: [place], warm and dry. Psychiatric: Normal mood and affect. Behavior is normal. Judgment and thought content normal. Nursing note and vital signs have been reviewed Patient has no C-spine T-spine or L-spine tenderness to palpation. Patient has no left upper or right upper quadrant tenderness to palpation. Patient has no crepitus to palpation to the anterior chest wall. Patient is neurologically intact. Patient does not present with any signs or or symptoms that would be consistent with acute intracranial, intra-abdominal, intrathoracic, or long bone injury. All long bones have been palpated and range of motion been performed a nd there is no evidence of any acute pathology. Patient has no evidence of trauma. Patient has no tenderness to palpation to his lower extremities, abdomen, pelvis, chest, back, head, neck. Patient does have a small amount of dried blood near his left ear however he has no hemotympanum. Diagnostics: CBC, CMP, alcohol level, CT scan of the head Therapeutics: Keppra 1500 mg IV Assessment and plan: 50-year-old gentleman with a history significant for seizure disorder who presents ER today secondary to a seizure that was witnessed today while at work. Patient reports that this was his typical seizure however his last was approximately 2 years ago. Patient reports his last CT scan of his head was also about 2 years ago. Given the new seizure over the last 2 years, I will obtain a CT scan of his head to rule out any trauma or new lesions that might be causing his recurrent seizure. Patient's most likely cause of his seizures is noncompliant with his Keppra. Patient be given a bolus of 1500 mg IV in the ED and will try to assist him with writing him for his Keppra 750 mg in the morning and 500 mg in the evening. Patient will be encouraged to follow-up with his neurologist as soon as possible for reevaluation of his current medication regimen. Patient's creatinine was 2.4 on initial evaluation. Patient received 2 L of NSS and his creatinine currently is improved to 1.8 which is closer to his baseline. Patient be discharged home. Patient CT scan and labs are all within normal limits. I will write a prescription for Keppra for 750 mg every morning and 500 mg every afternoon. Definitive disposition and diagnosis as appropriate pending reevaluation and review of above. - Related Data Allergies Allergy/AdvReac Type Severity Reaction Status Date / Time No Known Allergies Allergy Verified 08/05/20 01:20 Home Meds: Home Meds levETIRAcetam [Keppra] 750 mg PO BID 05/01/17 [History] Naproxen [Naprosyn] 500 mg PO Q12HR PRN 10 Days #20 tablet 08/19/19 [Rx] amLODIPine [Norvasc] 10 mg PO DAILY 30 Days #30 tablet 08/19/19 [Rx] Naproxen 500 mg PO BID PRN #60 tablet 05/08/20 [Rx] amLODIPine Besylate [Amlodipine Besylate] 10 mg PO DAILY #30 tablet 05/08/20 [Rx] levETIRAcetam [Keppra] 750 mg PO BID 30 Days #60 tablet 05/08/20 [Rx] levETIRAcetam [Keppra] 500 mg PO BEDTIME #30 tablet 08/05/20 [Rx] levETIRAcetam [Keppra] 750 mg PO DAILY #30 tab 08/05/20 [Rx] Past Medical History - Past Health History Medical/Surgical History: Denies Medical/Surgical History HEENT History: Reports: None Cardiovascular History: Reports: Hypertension Respiratory History: Reports: None Gastrointestinal History: Reports: None Genitourinary History: Reports: None Musculoskeletal History: Reports: None Neurological History: Reports: Seizure, Other (See Below) Other Neuro History: Meningioma Psychiatric History: Reports: None Endocrine/Metabolic History: Reports: None Hematologic History: Reports: None Immunologic History: Reports: None Oncologic (Cancer) History: Reports: None Dermatologic History: Reports: None - Infectious Disease History Infectious Disease History: Reports: None - Past Surgical History Head Surgeries/Procedures: Reports: None HEENT Surgical History: Reports: None Cardiovascular Surgical History: Reports: None Respiratory Surgical History: Reports: None GI Surgical History: Reports: None Male Surgical History: Reports: None Endocrine Surgical History: Reports: None Neurological Surgical History: Reports: None Musculoskeletal Surgical History: Reports: None Oncologic Surgical History: Reports: None Dermatological Surgical History: Reports: None Social & Family History - Family History Family Medical History: No Pertinent Family History - Caffeine Use Caffeine Use: Reports: None ED ROS GENERAL - Review of Systems Review Of Systems: See Below ED EXAM, GENERAL - Physical Exam Exam: See Below Course - Vital Signs Last Recorded V/S: Last Vital Signs Temp 99.2 F 08/05/20 01:14 Pulse 128 H 08/05/20 01:14 Resp 16 08/05/20 02:27 BP 169/96 H 08/05/20 02:27 Pulse Ox 98 08/05/20 02:27 - Orders/Labs/Meds Orders: Active Orders 24 hr Category Date Time Status Sodium Chloride 0.9% [Saline Flush] Med 08/05/20 01:05 Active 10 ml FLUSH ASDIRECTED PRN Sodium Chloride 0.9% [Saline Flush] Med 08/05/20 01:05 Active 2.5 ml FLUSH ASDIRECTED PRN levETIRAcetam [Keppra] 1,500 mg Med 08/05/20 01:30 Active Dextrose 5% in Water 100 ml IV Q12H Saline Lock Insert [OM.PC] Stat Oth 08/05/20 01:05 Ordered Medication Orders Levetiracetam 1,500 mg/ (Dextrose/Water) 115 mls @ 460 mls/hr IV Q12H SHANNAN Last Admin: 08/05/20 02:21 Dose: 460 mls/hr Documented by: [email or web address] Sodium Chloride (Sodium Chloride 0.9% 10 Ml Syringe) 10 ml FLUSH ASDIRECTED PRN PRN Reason: Keep Vein Open Sodium Chloride (Sodium Chloride 0.9% 2.5 Ml Syringe) 2.5 ml FLUSH ASDIRECTED PRN PRN Reason: Keep Vein Open Labs: Laboratory Tests 08/05/20 08/05/20 08/05/20 Range/Units 00:10 00:10 02:25 WBC 12.72 H (4.0-11.0) K/uL RBC 4.23 L (4.50-5.90) M/uL Hgb 12.6 L (13.0-17.0) g/dL Hct 39.8 (38.0-50.0) % MCV 94.1 (80.0-98.0) fL MCH 29.8 (27.0-32.0) pg MCHC 31.7 (31.0-37.0) g/dL RDW Std Deviation 50.3 (28.0-62.0) fl RDW Coeff of Josue 15 (11.0-15.0) % Plt Count 277 (150-400) K/uL MPV 9.70 (7.40-12.00) fL Neut % (Auto) 57.7 (48.0-80.0) % Lymph % (Auto) 30.4 (16.0-40.0) % [place] % (Auto) 8.8 (0.0-15.0) % Eos % (Auto) 2.6 (0.0-7.0) % Baso % (Auto) 0.5 (0.0-1.5) % Neut # (Auto) 7.3 H (1.4-5.7) K/uL Lymph # (Auto) 3.9 H (0.6-2.4) K/uL [place] # (Auto) 1.1 H (0.0-0.8) K/uL Eos # (Auto) 0.3 (0.0-0.7) K/uL Baso # (Auto) 0.1 (0.0-0.1) K/uL Sodium 138 (136-148) mmol/L Potassium 4.3 (3.5-5.1) mmol/L Chloride 101 (98-107) mmol/L Carbon Dioxide 17.9 L (21.0-32.0) mmol/L BUN 24 H (7.0-18.0) mg/dL Creatinine 2.4 H (0.8-1.3) mg/dL Est Cr Clr Drug Dosing 39.52 mL/min Estimated GFR (MDRD) 34.6 ml/min Glucose 126 H (74-106) mg/dL Calcium 8.7 (8.5-10.1) mg/dL Total Bilirubin 0.2 (0.2-1.0) mg/dL AST 58 H (15-37) IU/L ALT 68 H (14-63) IU/L Alkaline Phosphatase 60 (46-116) U/L Total Protein 8.2 (6.4-8.2) g/dL Albumin 3.8 (3.4-5.0) g/dL Globulin 4.4 H (2.6-4.0) g/dL Albumin/Globulin Ratio 0.9 (0.9-1.6) Urine Color YELLOW Urine Appearance CLEAR Urine pH 6.0 (5.0-8.0) Ur Specific Liberal 1.025 (1.001-1.035) Urine Protein 100 H (NEGATIVE) mg/dL Urine Glucose (UA) NEGATIVE (NEGATIVE) mg/dL Urine Ketones NEGATIVE (NEGATIVE) mg/dL Urine Occult Blood NEGATIVE (NEGATIVE) Urine Nitrite NEGATIVE (NEGATIVE) Urine Bilirubin NEGATIVE (NEGATIVE) Urine Urobilinogen 0.2 (<2.0) EU/dL Ur Leukocyte Esterase NEGATIVE (NEGATIVE) Urine RBC NONE SEEN (0-2/HPF) Urine WBC 0-1 (0-5/HPF) Ur Epithelial Cells NOT SEEN (NONE-FEW) Urine Bacteria FEW (NEGATIVE) Urine Mucus LIGHT (NONE-MOD) Ethyl Alcohol 5 mg/dL 08/05/20 Range/Units 03:15 WBC (4.0-11.0) K/uL RBC (4.50-5.90) M/uL Hgb (13.0-17.0) g/dL Hct (38.0-50.0) % MCV (80.0-98.0) fL MCH (27.0-32.0) pg MCHC (31.0-37.0) g/dL RDW Std Deviation (28.0-62.0) fl RDW Coeff of Josue (11.0-15.0) % Plt Count (150-400) K/uL MPV (7.40-12.00) fL Neut % (Auto) (48.0-80.0) % Lymph % (Auto) (16.0-40.0) % [place] % (Auto) (0.0-15.0) % Eos % (Auto) (0.0-7.0) % Baso % (Auto) (0.0-1.5) % Neut # (Auto) (1.4-5.7) K/uL Lymph # (Auto) (0.6-2.4) K/uL [place] # (Auto) (0.0-0.8) K/uL Eos # (Auto) (0.0-0.7) K/uL Baso # (Auto) (0.0-0.1) K/uL Sodium 142 (136-148) mmol/L Potassium 4.2 (3.5-5.1) mmol/L Chloride 106 (98-107) mmol/L Carbon Dioxide 26.6 (21.0-32.0) mmol/L BUN 22 H (7.0-18.0) mg/dL Creatinine 1.8 H (0.8-1.3) mg/dL Est Cr Clr Drug Dosing 52.69 mL/min Estimated GFR (MDRD) 48.3 ml/min Glucose 117 H (74-106) mg/dL Calcium 8.0 L (8.5-10.1) mg/dL Total Bilirubin (0.2-1.0) mg/dL AST (15-37) IU/L ALT (14-63) IU/L Alkaline Phosphatase (46-116) U/L Total Protein (6.4-8.2) g/dL Albumin (3.4-5.0) g/dL Globulin (2.6-4.0) g/dL Albumin/Globulin Ratio (0.9-1.6) Urine Color Urine Appearance Urine pH (5.0-8.0) Ur Specific [place] (1.001-1.035) Urine Protein (NEGATIVE) mg/dL Urine Glucose (UA) (NEGATIVE) mg/dL Urine Ketones (NEGATIVE) mg/dL Urine Occult Blood (NEGATIVE) Urine Nitrite (NEGATIVE) Urine Bilirubin (NEGATIVE) Urine Urobilinogen (<2.0) EU/dL Ur Leukocyte Esterase (NEGATIVE) Urine RBC (0-2/HPF) Urine WBC (0-5/HPF) Ur Epithelial Cells (NONE-FEW) Urine Bacteria (NEGATIVE) Urine Mucus (NONE-MOD) Ethyl Alcohol mg/dL Meds: Medications Generic Name Dose Route Start Last Admin Trade Name Freq PRN Reason Stop Dose Admin Levetiracetam 1,500 mg/ 115 mls @ 460 mls/hr 08/05/20 01:30 08/05/20 02:21 Dextrose/Water IV 460 mls/hr Q12H SHANNAN Administration Sodium Chloride 10 ml 08/05/20 01:05 Sodium Chloride 0.9% 10 Ml Syringe FLUSH ASDIRECTED PRN Keep Vein Open Sodium Chloride 2.5 ml 08/05/20 01:05 Sodium Chloride 0.9% 2.5 Ml Syringe FLUSH ASDIRECTED PRN Keep Vein Open Discontinued Medications Generic Name Dose Route Start Last Admin Trade Name Dexter PRN Reason Stop Dose Admin Sodium Chloride 1,000 mls @ 999 mls/hr 08/05/20 01:05 08/05/20 01:17 Normal Saline IV 08/05/20 02:05 999 mls/hr .Bolus ONE Administration Sodium Chloride 1,000 mls @ 999 mls/hr 08/05/20 02:25 08/05/20 02:41 Normal Saline IV 08/05/20 03:25 999 mls/hr .Bolus ONE Administration Departure - Departure Time of Disposition: 03:49 Disposition: Home, Self-Care 01 Condition: Good Clinical Impression: Seizure, Noncompliance with medication regimen - Discharge Information Instructions: Epilepsy, [id number] Forms: ED Department Discharge Additional Instructions: You were seen and evaluated in the ER today secondary to a seizure. Your tests in the ER were all normal. Please make sure that you get your medications filled. I will give you a month supply but you will need to make an appointment to see your neurologist within the month. While you are in the ER, your kidney function had been elevated to 2.4. After the IV fluids that were given your kidney function has improved to its baseline of 1.8. The following information is given to patients seen in the emergency department who are being discharged to home. This information is to outline your options for follow-up care. We provide all patients seen in our emergency department w ith a follow-up referral. The need for follow-up, as well as the timing and circumstances, are variable depending upon the specifics of your emergency department visit. If you don't have a primary care physician on staff, we will provide you with a referral. We always advise you to contact your personal physician following an emergency department visit to inform them of the circumstance of the visit and for follow-up with them and/or the need for any referrals to a consulting specialist. The emergency department will also refer you to a specialist when appropriate. This referral assures that you have the opportunity for follow-up care with a specialist. All of these measure are taken in an effort to provide you with optimal care, which includes your follow-up. Under all circumstances we always encourage you to contact your private physician who remains a resource for coordinating your care. When calling for follow-up care, please make the office aware that this follow-up is from your recent emergency room visit. If for any reason you are refused follow-up, please contact the [facility] Emergency Department at and asked to speak to the emergency department charge nurse. [facility] - [facility] [address] [place] [id number] [facility] [address] [place] [id number] Sepsis Event Note (ED) - Evaluation Sepsis Screening Result: No Definite Risk - Focused Exam Vital Signs: Vital Signs Temp Pulse Resp BP Pulse Ox 08/05/20 02:27 16 169/96 H 98 08/05/20 01:14 99.2 F 128 H 20 171/110 H 97 - My Orders Last 24 Hours: My Active Orders 08/05/20 01:05 Sodium Chloride 0.9% [Saline Flush] 10 ml FLUSH ASDIRECTED PRN Sodium Chloride 0.9% [Saline Flush] 2.5 ml FLUSH ASDIRECTED PRN Saline Lock Insert [OM.PC] Stat 08/05/20 01:30 levETIRAcetam [Keppra] 1,500 mg Dextrose 5% in Water 100 ml IV Q12H - Assessment/Plan Last 24 Hours: My Active Orders 08/05/20 01:05 Sodium Chloride 0.9% [Saline Flush] 10 ml FLUSH ASDIRECTED PRN Sodium Chloride 0.9% [Saline Flush] 2.5 ml FLUSH ASDIRECTED PRN Saline Lock Insert [OM.PC] Stat 08/05/20 01:30 levETIRAcetam [Keppra] 1,500 mg Dextrose 5% in Water 100 ml IV Q12H
--- NOTE | 2020-08-05 02:46 | CT ---
INDICATION: Fall. Seizure TECHNIQUE: CT head without contrast. COMPARISON: 08/18/2019 FINDINGS: Again seen is a superior craniotomy with underlying superior left frontal lobe encephalomalacia. There is mild cortical atrophy. The ventricles are within normal limits for the patient`s age. There is no mass effect or midline shift. There is no loss of chacko-white differentiation. There is mild focal dural thickening in the superior left frontoparietal region, underlying the craniotomy, partially related to a regional dural vessel, mildly increased. There is otherwise no evidence of an acute intracranial hemorrhage. No acute calvarial fracture is seen. There are chronic right lamina papyracea and orbital floor deformities. Again seen is a prominent ovoid low-attenuation structure/collection in the superior left scalp overlying the craniotomy. Foci of trace paranasal sinus mucosal thickening are noted. The mastoid air cells are clear. The visualized orbits are within normal limits. IMPRESSION: No evidence of an acute intracranial hemorrhage, mass effect or loss of chacko-white differentiation. Postsurgical changes with superior left frontal encephalomalacia again seen. Please note that all CT scans at this facility use dose modulation, iterative reconstruction, and/or weight-based dosing when appropriate to reduce radiation dose to as low as reasonably achievable. Dictated by Zelalem Ponce MD @ 08/05/2020 2:45:[address] Zelalem Ponce @ Aug 05 2020 2:45AM
[2020-08-05 03:36] LABS: CARBON DIOXIDE,CO2 26.6 mmol/L (21.0-32.0); POTASSIUM,K 4.2 mmol/L (3.5-5.1)
[2020-08-05 04:20] VITALS: BP 164/103
== END 2020-08-05 04:05 | disposition home or self-care (01) ==
LOC: MW.ED 01:04
DX: G40.909 Epilepsy, unspecified, not intractable, without status epilepticus (principal); I10 Essential (primary) hypertension; Z91.19 Patient's noncompliance with other medical treatment and regimen
CPT/HCPCS: 36415; 70450; 80048; 80053; 80307; 81001; 85025; 96374; 99285; J1953; J7030; 99284

== ENCOUNTER 2020-10-01 23:36 | Emergency (ER) | payer MEDICAID ==
[2020-10-01] MEDS ORDERED: amLODIPine 5 MG Tab PO ONE ×2 (23:55→23:58)
[2020-10-01] MEDS ORDERED: levETIRAcetam Soln 500 MG/5 ML Cup PO ONE (23:55)
--- NOTE | 2020-10-02 00:16 | PCM.EKG ---
#1 Interpretation EKG Date: 10/02/20 Time: 00:08 Rhythm: NSR Rate (Beats/Min): 115 Almo: Normal P-Wave: Present QRS: Normal ST-T: Normal QT: Normal Comparison: No Change (05/08/20) EKG Interpretation Comments: Sinus tachycardia
[2020-10-02 00:32] VITALS: BP 155/83; PULSE 103
--- NOTE | 2020-10-02 00:44 | EDM.PDOC ---
ED HPI GENERAL MEDICAL PROBLEM - General Chief Complaint: Neuro Symptoms/Deficits Stated Complaint: SEIZURES Time Seen by Provider: 10/01/20 23:53 - History of Present Illness INITIAL COMMENTS - FREE TEXT/NARRATIVE: CHIEF COMPLAINT(S): Seizure HISTORY OF PRESENT ILLNESS: This is a 60-year-old man with a past medical history of epilepsy on Keppra who presents to the emergency department from work with a chief complaint of seizure. Per EMS, patient had a short-lived seizure and was postictal. They state that by the time they brought him to the emergency department he was back to his baseline. Patient currently states that he is not experiencing any symptoms and he believes that he had a breakthrough seizure because he is not taking his medication as prescribed. He states that he supposed to take 750 mg of Keppra in the morning and 500 mg at night however he seems to not be able to afford this medication. In addition he does not take his blood pressure medication for the same reason. He currently denies any headache, blurry vision, chest pain, shortness of breath abdominal pain, nausea or vomiting. Denies any numbness or tingling or weakness. He denies any other symptoms. He denies any preceding symptoms. REVIEW OF SYSTEMS: Constitutional: Denies fever, chills. Eyes: Denies eye pain Ears, Nose, Mouth, & Throat: Denies earache Cardiovascular: Denies chest pain Respiratory: Denies shortness of breath Gastrointestinal: Denies Nausea, vomiting, diarrhea, hematochezia. Genitourinary: Denies hematuria Skin:Denies a rash MSK: Denies joint pain Neurological: Positive for seizure denies blurred vision Psychiatric: Denies depression PAST MEDICAL HISTORY: As per history of present illness and as reviewed below otherwise noncontributory. SURGICAL HISTORY: As per history of present illness and as reviewed below otherwise noncontributory. SOCIAL HISTORY: As per history of present illness and as reviewed below otherwise noncontributory. FAMILY HISTORY: As per history of present illness and as reviewed below otherwise noncontributory. EXAMINATION OF ORGAN SYSTEMS/BODY AREAS: Constitutional: Blood pressure is 157/111, heart rate 125, respiratory rate 20 with an oxygen saturation 98% on room air. Temperature 36.1 General: Well-appearing man who is in no acute distress Psychiatric: Appropriate mood and affect. Eyes: No scleral icterus or conjunctival erythema ENMT: Moist mucous membranes. No pharyngeal erythema Cardiovascular: Regular, rate, and rhythm. No gallops, murmurs, or rubs. Bilateral upper extremity pulses symmetric and intact. No peripheral edema. No JVD. Respiratory: Lungs clear to auscultation bilaterally. No wheezes, rales, or rhonchi. Gastrointestinal: Soft, non-tender, non-distended. Normoactive bowel sounds Genitourinary: No suprapubic tenderness Musculoskeletal: Normal range of motion. Skin: No lesions or abrasions. Neurological: Alert, GCS 15 MEDICAL DECISION MAKING AND COURSE IN THE ED WITH INTERPRETATION/REVIEW OF DIAGNOSTIC STUDIES: This is a 50-year-old man with a past medical history of epilepsy was on Keppra who is noncompliant with presents to the emergency department with breakthrough seizure. At this time I do believe any further work-up is indicated. Given the tachycardia will obtain an EKG. He denies preceding symptoms and the patient appears back to baseline. We will observe the patient in the emergency department. We will load the patient with Keppra also provide the patient with his home dose of amlodipine. We will send the patient's prescriptions to the pharmacy and provide him with a good Rx discount so that he can afford his medications. After period of observation the patient is requesting to leave. At this time I believe the patient stable for discharge. He is to return for any new or wors ening symptoms. I did encourage the patient to follow-up with his primary care physician for further medication adjustments. DISPOSITION: The patient was discharged home in stable condition. The patient will follow up with primary care physician in 1 to 3 days CONDITION: Fair PROCEDURES: None FINAL IMPRESSION(S)/DIAGNOSES: 1. Acute breakthrough seizure secondary to medication noncompliance 2. Acute uncontrolled hypertension secondary to medication noncompliance 3. Acute tachycardia likely secondary #1 Warren Wood M.D. - Related Data Allergies Allergy/AdvReac Type Severity Reaction Status Date / Time No Known Allergies Allergy Verified 10/01/20 23:46 Home Meds: Home Meds levETIRAcetam [Keppra] 750 mg PO BID 05/01/17 [History] Naproxen [Naprosyn] 500 mg PO Q12HR PRN 10 Days #20 tablet 08/19/19 [Rx] amLODIPine [Norvasc] 10 mg PO DAILY 30 Days #30 tablet 08/19/19 [Rx] Naproxen 500 mg PO BID PRN #60 tablet 05/08/20 [Rx] amLODIPine Besylate [Amlodipine Besylate] 10 mg PO DAILY #30 tablet 05/08/20 [Rx] levETIRAcetam [Keppra] 750 mg PO BID 30 Days #60 tablet 05/08/20 [Rx] levETIRAcetam [Keppra] 500 mg PO BEDTIME #30 tablet 08/05/20 [Rx] levETIRAcetam [Keppra] 750 mg PO DAILY #30 tab 08/05/20 [Rx] amLODIPine [Norvasc] 10 mg PO DAILY #28 tablet 10/02/20 [Rx] levETIRAcetam [Keppra] 500 mg PO ASDIRECTED #14 tablet 10/02/20 [Rx] levETIRAcetam [Keppra] 750 mg PO DAILY #14 tab 10/02/20 [Rx] Past Medical History - Past Health History Medical/Surgical History: Denies Medical/Surgical History HEENT History: Reports: None Cardiovascular History: Reports: Hypertension Respiratory History: Reports: None Gastrointestinal History: Reports: None Genitourinary History: Reports: None Musculoskeletal History: Reports: None Neurological History: Reports: Seizure, Other (See Below) Other Neuro History: Meningioma Psychiatric History: Reports: None Endocrine/Metabolic History: Reports: None Hematologic History: Reports: None Immunologic History: Reports: None Oncologic (Cancer) History: Reports: None Dermatologic History: Reports: None - Infectious Disease History Infectious Disease History: Reports: None - Past Surgical History Head Surgeries/Procedures: Reports: None HEENT Surgical History: Reports: None Cardiovascular Surgical History: Reports: None Other Cardiovascular Surgeries/Procedures: on medication (Amlodipine) patient did not take for 3 days Respiratory Surgical History: Reports: None GI Surgical History: Reports: None Male Surgical History: Reports: None Endocrine Surgical History: Reports: None Neurological Surgical History: Reports: None Musculoskeletal Surgical History: Reports: None Oncologic Surgical History: Reports: None Dermatological Surgical History: Reports: None Social & Family History - Family History Family Medical History: No Pertinent Family History - Caffeine Use Caffeine Use: Reports: Coffee ED ROS GENERAL - Review of Systems Review Of Systems: See Below ED EXAM, GENERAL - Physical Exam Exam: See Below Course - Vital Signs Last Recorded V/S: Last Vital Signs Temp 36.1 C 10/01/20 23:46 Pulse 103 H 10/02/20 00:29 Resp 15 10/02/20 00:29 BP 155/83 H 10/02/20 00:29 Pulse Ox 98 10/02/20 00:29 - Orders/Labs/Meds Meds: Medications Discontinued Medications Generic Name Dose Route Start Last Admin Trade Name Dexter PRN Reason Stop Dose Admin Amlodipine Besylate 5 mg 10/01/20 23:55 10/02/20 00:07 Amlodipine 5 Mg Tab PO 10/01/20 23:56 5 mg ONETIME ONE Administration Amlodipine Besylate 5 mg 10/01/20 23:58 10/02/20 00:07 Amlodipine 5 Mg Tab PO 10/01/20 23:59 5 mg ONETIME ONE Administration Levetiracetam 2,000 mg 10/01/20 23:55 10/02/20 00:07 Levetiracetam Soln 500 Mg/5 Ml Cup PO 10/01/20 23:56 2,000 mg NOW ONE Administration Departure - Departure Time of Disposition: 00:42 Disposition: Home, Self-Care 01 Condition: Fair Clinical Impression: Seizure disorder - Discharge Information *PRESCRIPTION DRUG MONITORING PROGRAM REVIEWED*: No *COPY OF PRESCRIPTION DRUG MONITORING REPORT IN PATIENT AMAYA: No Prescriptions: levETIRAcetam [Keppra] 500 mg PO ASDIRECTED #14 tablet levETIRAcetam [Keppra] 750 mg PO DAILY #14 tab amLODIPine [Norvasc] 10 mg PO DAILY #28 tablet Instructions: Hypertension, Adult, [id number], Seizure, Adult, [id number] Referrals: PCP,None [Primary Care Provider] - Forms: ED Department Discharge Additional Instructions: You were evaluated today on an emergent basis. At this time we did provide you with a bolus dose of your Keppra and gave you your home medication of blood pressure meds. I do recommend that you take these daily and follow-up with primary care physician for further prescriptions. It is important that you follow-up within 1 to 3 days for reevaluation. Please return for any new or worsening symptoms [facility] [address] [place] [id number] [facility] [address] [place] [phone] The patient is informed of any results of their evaluation and diagnostic workup and all questions are answered. They are given discharge instructions and return precautions. The patient is stable for discharge. The patient states they understand and agree with the plan and that they will return if their symptoms get worse or if they have any new concerns. The following information is given to patients seen in the emergency department who are being discharged to home. This information is to outline your options for follow-up care. We provide all patients seen in our emergency department with a follow-up referral. The need for follow-up, as well as the timing and circumstances, are variable depending upon the specifics of your emergency department visit. If you don't have a primary care physician on staff, we will provide you with a referral. We always advise you to contact your personal physician following an emergency department visit to inform them of the circumstance of the visit and for follow-up with them and/or the need for any referrals to a consulting specialist. The emergency department will also refer you to a specialist when appropriate. This referral assures that you have the opportunity for follow-up care with a specialist. All of these measure are taken in an effort to provide you with optimal care, which includes your follow-up. Under all circumstances we always encourage you to contact your private physician who remains a resource for coordinating your care. When calling for follow-up care, please make the office aware that this follow-up is from your recent emergency room visit. If for any reason you are refused follow-up, please contact the [facility] Emergency Department at and asked to speak to the emergency department charge nurse. Sepsis Event Note (ED) - Evaluation Sepsis Screening Result: No Definite Risk
== END 2020-10-02 01:02 | disposition home or self-care (01) ==
LOC: MW.ED 23:36
DX: G40.909 Epilepsy, unspecified, not intractable, without status epilepticus (principal); I10 Essential (primary) hypertension; R00.0 Tachycardia, unspecified; Z91.19 Patient's noncompliance with other medical treatment and regimen
CPT/HCPCS: 93005; 99284; A9270; 99283

== ENCOUNTER 2020-10-07 16:57 | Emergency (ER) | payer MEDICAID ==
--- NOTE | 2020-10-07 16:59 | EDM.PDOC ---
ED HPI GENERAL MEDICAL PROBLEM - General Chief Complaint: Back Pain or Injury Stated Complaint: BACK PAIN Time Seen by Provider: 10/07/20 16:59 Source of Information: Reports: Patient History Limitations: Reports: No Limitations - History of Present Illness INITIAL COMMENTS - FREE TEXT/NARRATIVE: 50-year-old male past medical history hypertension, chronic back pain, seizure disorder, medication noncompliance presents for back pain. Patient notes that last weekend he had a seizure and was seen in the emergency department here. He had an unremarkable work-up and was sent home. Couple days later he began to develop pain in his left-sided upper back and bilateral lower back. He has had pain like this before. He had an MRI but it was several years ago. He denies any urinary retention or incontinence. No saddle anesthesia. No lower extremity muscle weakness. He has an appointment with his PMD next week to see about reassessment. right upper back Pain Score (Numeric/FACES): 8 - Related Data Allergies Allergy/AdvReac Type Severity Reaction Status Date / Time No Known Allergies Allergy Verified 10/07/20 17:08 Home Meds: Home Meds Naproxen 500 mg PO BID PRN #60 tablet 05/08/20 [Rx] levETIRAcetam [Keppra] 500 mg PO BEDTIME #30 tablet 08/05/20 [Rx] amLODIPine [Norvasc] 10 mg PO DAILY #28 tablet 10/02/20 [Rx] levETIRAcetam [Keppra] 750 mg PO DAILY #14 tab 10/02/20 [Rx] Cyclobenzaprine [Flexeril] 10 mg PO TID PRN #18 tab 10/07/20 [Rx] Naproxen 500 mg PO BID PRN #20 tablet 10/07/20 [Rx] Past Medical History - Past Health History Medical/Surgical History: Denies Medical/Surgical History HEENT History: Reports: None Cardiovascular History: Reports: Hypertension Respiratory History: Reports: None Gastrointestinal History: Reports: None Genitourinary History: Reports: None Musculoskeletal History: Reports: None Neurological History: Reports: Seizure, Other (See Below) Other Neuro History: Meningioma Psychiatric History: Reports: None Endocrine/Metabolic History: Reports: None Hematologic History: Reports: None Immunologic History: Reports: None Oncologic (Cancer) History: Reports: None Dermatologic History: Reports: None - Infectious Disease History Infectious Disease History: Reports: None - Past Surgical History Head Surgeries/Procedures: Reports: None HEENT Surgical History: Reports: None Cardiovascular Surgical History: Reports: None Other Cardiovascular Surgeries/Procedures: on medication (Amlodipine) patient did not take for 3 days Respiratory Surgical History: Reports: None GI Surgical History: Reports: None Male Surgical History: Reports: None Endocrine Surgical History: Reports: None Neurological Surgical History: Reports: None Musculoskeletal Surgical History: Reports: None Oncologic Surgical History: Reports: None Dermatological Surgical History: Reports: None Social & Family History - Family History Family Medical History: No Pertinent Family History - Caffeine Use Caffeine Use: Reports: Coffee ED ROS GENERAL - Review of Systems Review Of Systems: Comprehensive ROS is negative, except as noted in HPI. ED EXAM, GENERAL - Physical Exam Exam: See Below Exam Limited By: No Limitations General Appearance: Alert, WD/WN, No Apparent Distress Ears: Hearing Grossly Normal Throat/Mouth: Normal Voice, No Airway Compromise Head: Atraumatic, Normocephalic Neck: Normal Inspection Respiratory/Chest: No Respiratory Distress, Lungs Clear, Normal Breath Sounds, No Accessory Muscle Use Cardiovascular: Normal Peripheral Pulses, Regular Rate, Rhythm Back Exam: Normal Inspection. No: Vertebral Tenderness Extremities: Normal Inspection Neurological: Alert, Normal Cognition, Normal Gait Psychiatric: Normal Affect, Normal Mood Skin Exam: Warm, Dry, Intact, Normal Color Course - Vital Signs Last Recorded V/S: Last Vital Signs Temp 98.1 F 10/07/20 17:09 Pulse 105 H 10/07/20 17:09 Resp 16 10/07/20 17:09 BP 136/90 10/07/20 17:09 Pulse Ox 99 10/07/20 17:09 - Orders/Labs/Meds Meds: Medications Discontinued Medications Generic Name Dose Route Start Last Admin Trade Name Freq PRN Reason Stop Dose Admin Cyclobenzaprine HCl 10 mg 10/07/20 17:18 10/07/20 17:33 Cyclobenzaprine 10 Mg Tab PO 10/07/20 17:19 10 mg ONETIME ONE Administration Dexamethasone 10 mg 10/07/20 17:18 10/07/20 17:33 Dexamethasone 10 Mg/Ml Sdv IM 10/07/20 17:19 10 mg ONETIME ONE Administration Ketorolac Tromethamine 30 mg 10/07/20 17:18 10/07/20 17:32 Ketorolac 30 Mg/Ml Sdv IM 10/07/20 17:19 30 mg ONETIME ONE Administration - Re-Assessments/Exams Free Text/Narrative Re-Assessment/Exam: 10/07/20 17:20 We'll treat for acute pain with muscle relaxant, Toradol. Will give Decadron for anti-inflammatory effects. Patient already has follow-up with his PMD and I recommend that he keep this appointment consider MRI imaging of the back. He doesn't have any red flag signs or symptoms concerning for cauda equina. I have very low suspicion for fracture so will defer CT or x-ray imaging. 10/07/20 18:24 Patient notes that he is feeling much better. He is still having some pain but he states he is able to lie down for the first time in a couple of days. Will discharge with naproxen and Flexeril. Patient is going to keep his appointment with Dr. Mccoy for further work-up and management. Departure - Departure Time of Disposition: 18:24 Disposition: Home, Self-Care 01 Condition: Good Clinical Impression: Back pain Qualifiers: Back pain location: low back pain Chronicity: acute Back pain laterality: unspecified Sciatica presence: unspecified whether sciatica present Qualified Code(s): M54.5 - Low back pain - Discharge Information Prescriptions: Cyclobenzaprine [Flexeril] 10 mg PO TID PRN #18 tab PRN Reason: Muscle Spasm - Painful Naproxen 500 mg PO BID PRN #20 tablet PRN Reason: Pain Instructions: Acute Back Pain, Adult Referrals: Arvin Triana MD [Primary Care Provider] - Forms: ED Department Discharge Additional Instructions: Please follow-up with your primary care physician for further work-up and diagnosis. If your pain becomes severe you are always welcome to come back to the emergency department for reassessment, however, we are unable to do MRI imaging from the ER and I believe you may benefit from an MRI. The following information is given to patients seen in the emergency department who are being discharged to home. This information is to outline your options for follow-up care. We provide all patients seen in our emergency department with a follow-up referral. The need for follow-up, as well as the timing and circumstances, are variable depending upon the specifics of your emergency department visit. If you don't have a primary care physician on staff, we will provide you with a referral. We always advise you to contact your personal physician following an emergency department visit to inform them of the circumstance of the visit and for follow-up with them and/or the need for any referrals to a consulting deepthii halinast. The emergency department will also refer you to a specialist when appropriate. This referral assures that you have the opportunity for follow-up care with a specialist. All of these measure are taken in an effort to provide you with optimal care, which includes your follow-up. Under all circumstances we always encourage you to contact your private physician who remains a resource for coordinating your care. When calling for follow-up care, please make the office aware that this follow-up is from your recent emergency room visit. If for any reason you are refused follow-up, please contact the [facility] Emergency Department at and asked to speak to the emergency department charge nurse. Please follow up with your primary care physician. If you do not have a primary care physician, see below: [facility] [address] [place] [id number] [facility] [address] [place] [id number] [facility] [address] [place] [id number] Sepsis Event Note (ED) - Focused Exam Vital Signs: Vital Signs Temp Pulse Resp BP Pulse Ox 10/07/20 17:09 98.1 F 105 H 16 136/90 99
[2020-10-07] MEDS ORDERED: Dexamethasone 10 MG/ML SDV IM ONE (17:18)
[2020-10-07] MEDS ORDERED: Cyclobenzaprine 10 MG Tab PO ONE (17:18)
[2020-10-07] MEDS ORDERED: Ketorolac 30 MG/ML SDV IM ONE (17:18)
[2020-10-07 18:46] VITALS: BP 147/92; PULSE 88
== END 2020-10-07 18:46 | disposition home or self-care (01) ==
LOC: MW.ED 16:57
DX: M54.5 Low back pain (principal); M54.6 Pain in thoracic spine; I10 Essential (primary) hypertension; G40.909 Epilepsy, unspecified, not intractable, without status epilepticus; Z79.899 Other long term (current) drug therapy
CPT/HCPCS: 96372; 99283; A9270; J1100; J1885

== ENCOUNTER 2020-11-24 19:39 | Emergency (ER) | payer MEDICAID ==
[2020-11-24 19:55] VITALS: BP 150/95; PULSE 110
[2020-11-24] MEDS ORDERED: Lidocaine 5% 700 MG Patch TRDERM ONE (20:04)
--- NOTE | 2020-11-24 20:04 | EDM.PDOC ---
ED HPI GENERAL MEDICAL PROBLEM - General Chief Complaint: Back Pain or Injury Stated Complaint: BACK PAIN, UPPER RESP. DEHYDRATION Time Seen by Provider: 11/24/20 19:47 Source of Information: Reports: Patient History Limitations: Reports: No Limitations - History of Present Illness INITIAL COMMENTS - FREE TEXT/NARRATIVE: Patient is a 50-year-old male presents today for low back pain. Patient is seeing back a few weeks ago getting out of a vehicle and since then has had ongoing back pain. States he was seen at hospital before was given some Flexeril naproxen really about the pain. He said a few days ago he had pain when trying to bend over and he had to bend his knees to pick anything up. Says the pain is now improving. He denies any abdominal pain, saddle anesthesia or leg weakness or any other complaints. Lower Back Pain Score (Numeric/FACES): 6 - Related Data Allergies Allergy/AdvReac Type Severity Reaction Status Date / Time No Known Allergies Allergy Verified 11/24/20 19:55 Home Meds: Home Meds Naproxen 500 mg PO BID PRN #60 tablet 05/08/20 [Rx] levETIRAcetam [Keppra] 500 mg PO BEDTIME #30 tablet 08/05/20 [Rx] amLODIPine [Norvasc] 10 mg PO DAILY #28 tablet 10/02/20 [Rx] levETIRAcetam [Keppra] 750 mg PO DAILY #14 tab 10/02/20 [Rx] Past Medical History - Past Health History Medical/Surgical History: Denies Medical/Surgical History HEENT History: Reports: None Cardiovascular History: Reports: Hypertension Respiratory History: Reports: None Gastrointestinal History: Reports: None Genitourinary History: Reports: None Musculoskeletal History: Reports: None Neurological History: Reports: Seizure, Other (See Below) Other Neuro History: Meningioma Psychiatric History: Reports: None Endocrine/Metabolic History: Reports: None Hematologic History: Reports: None Immunologic History: Reports: None Oncologic (Cancer) History: Reports: None Dermatologic History: Reports: None - Infectious Disease History Infectious Disease History: Reports: None - Past Surgical History Head Surgeries/Procedures: Reports: None HEENT Surgical History: Reports: None Cardiovascular Surgical History: Reports: None Other Cardiovascular Surgeries/Procedures: on medication (Amlodipine) patient did not take for 3 days Respiratory Surgical History: Reports: None GI Surgical History: Reports: None Male Surgical History: Reports: None Endocrine Surgical History: Reports: None Neurological Surgical History: Reports: None Musculoskeletal Surgical History: Reports: None Oncologic Surgical History: Reports: None Dermatological Surgical History: Reports: None Social & Family History - Family History Family Medical History: No Pertinent Family History - Tobacco Use Tobacco Use Status *Q: Never Tobacco User Second Hand Smoke Exposure: No - Caffeine Use Caffeine Use: Reports: None - Recreational Drug Use Recreational Drug Use: No ED ROS GENERAL - Review of Systems Review Of Systems: See Below Constitutional: Reports: No Symptoms HEENT: Reports: No Symptoms Respiratory: Reports: No Symptoms Cardiovascular: Reports: No Symptoms Endocrine: Reports: No Symptoms GI/Abdominal: Reports: No Symptoms : Reports: No Symptoms Musculoskeletal: Reports: Back Pain Skin: Reports: No Symptoms Neurological: Reports: No Symptoms Psychiatric: Reports: No Symptoms Hematologic/Lymphatic: Reports: No Symptoms Immunologic: Reports: No Symptoms ED EXAM,LOWER BACK PAIN/INJURY - Physical Exam Exam: See Below Exam Limited By: No Limitations General Appearance: Alert, WD/WN, No Apparent Distress Eye Exam: Bilateral Eye: EOMI, PERRL Throat/Mouth: Normal Inspection Head: Atraumatic, Normocephalic Neck: Normal Inspection, Supple, Non-Tender Respiratory/Chest: No Respiratory Distress, Lungs Clear, Normal Breath Sounds Cardiovascular: Normal Peripheral Pulses, Regular Rate, Rhythm GI/Abdominal: Normal Bowel Sounds, Soft, Non-Tender. No: Mass Back Exam: Normal Inspection, Full Range of Motion. No: Decreased Range of Motion, Vertebral Tenderness Extremities: Normal Inspection Neurological: Alert, Normal Mood/Affect Course - Vital Signs Last Recorded V/S: Last Vital Signs Temp 97.0 F 11/24/20 19:52 Pulse 110 H 11/24/20 19:52 Resp 16 11/24/20 19:52 BP 150/95 H 11/24/20 19:52 Pulse Ox 99 11/24/20 19:52 Departure - Departure Time of Disposition: 20:03 Disposition: Home, Self-Care 01 Condition: Good Clinical Impression: Lumbago - Discharge Information *PRESCRIPTION DRUG MONITORING PROGRAM REVIEWED*: Not Applicable *COPY OF PRESCRIPTION DRUG MONITORING REPORT IN PATIENT AMAYA: Not Applicable Instructions: Managing Chronic Back Pain Referrals: Arvin Triana MD [Primary Care Provider] - Additional Instructions: The following information is given to patients seen in the emergency department who are being discharged to home. This information is to outline your options for follow-up care. We provide all patients seen in our emergency department with a follow-up referral. The need for follow-up, as well as the timing and circumstances, are variable depending upon the specifics of your emergency department visit. If you don't have a primary care physician on staff, we will provide you with a referral. We always advise you to contact your personal physician following an emergency department visit to inform them of the circumstance of the visit and for follow-up with them and/or the need for any referrals to a consulting specialist. The emergency department will also refer you to a specialist when appropriate. This referral assures that you have the opportunity for follow-up care with a specialist. All of these measure are taken in an effort to provide you with optimal care, which includes your follow-up. Under all circumstances we always encourage you to contact your private physician who remains a resource for coordinating your care. When calling for follow-up care, please make the office aware that this follow-up is from your recent emergency room visit. If for any reason you are refused follow-up, please contact the [facility] Emergency Department at and asked to speak to the emergency department charge nurse. Please follow up with your primary care physician. If you do not have a primary care physician, see below: [facility] [address] [place] [id number] [facility] [address] [place] [id number] You were seen today for low back pain. Your pain is improved per you over the past few days but is occasionally still there when you bend over. We provide you a lidocaine patch that should help out with your pain and allow you to continue to work. We still recommend you follow-up with your primary care physician if you have any other concerning signs or symptoms please return to the ED. Sepsis Event Note (ED) - Focused Exam Vital Signs: Vital Signs Temp Pulse Resp BP Pulse Ox 11/24/20 19:52 97.0 F 110 H 16 150/95 H 99 - Assessment/Plan Plan: Patient is a 50-year-old male who presents today for what seems to be chronic low back pain. On exam he states his pain is improved significantly. States he does not have any pain currently but the pain is only there when he tries to bend over and pick anything up. On exam he had no vertebral tenderness no abdominal pulsatile mass. Will provide lidocaine patch and discharge patient home.
--- NOTE | 2020-11-24 20:21 | PCM.EKG ---
#1 Interpretation EKG Date: 11/24/20 Time: 20:16 Rhythm: NSR Rate (Beats/Min): 95 ST-T: Normal
== END 2020-11-24 20:39 | disposition home or self-care (01) ==
LOC: MW.ED 19:39
DX: M54.5 Low back pain (principal); I10 Essential (primary) hypertension; R56.9 Unspecified convulsions; Z79.899 Other long term (current) drug therapy
CPT/HCPCS: 93005; 99283; A9270